=== PATIENT | female | born 1995 | race African-American/Black ===

== ENCOUNTER 2017-04-23 10:23 | Emergency (ER) | payer MEDICAID, OTHER ==
[2017-04-23] MEDS ORDERED: IBUPROFEN 800 MG TABLET PO ONE (10:58)
[2017-04-23] MEDS ORDERED: ONDANSETRON 4 MG TAB.RAPDIS PO ONE (10:59)
--- NOTE | 2017-04-23 11:17 | ER Document Report ---
ED Respiratory Problem - General Chief Complaint: Cold Symptoms Stated Complaint: NECK PAIN,HEADACHE Time Seen by Provider: 04/23/17 10:42 Mode of Arrival: Ambulatory Information source: Patient Notes: 22-year-old female presents to ED for cough cold congestion and headache for 3 or 4 days. She states her lungs hurt when she takes a deep breath. She also has a headache that she states will not go away. She has a history of spina bifida occulta, anxiety, depression, bipolar, psychotic disorder. TRAVEL OUTSIDE OF THE [place] IN LAST 30 DAYS: No - HPI Patient complains to provider of: Cough Onset: Other - 3-4 days Duration: Continuous Initiating Event: URI Quality of pain: Achy, Sharp Severity: Moderate Pain Level: 3 Chest pain/discomfort: Worse with deep breaths Cough: Nonproductive Sputum amount: None Associated symptoms: Congestion, Cough, Headache, PND, Sinus pain/pressure Similar symptoms previously: Yes Recently seen / treated by doctor: No Past Medical History - General Information source: Patient - Social History Smoking Status: Never Smoker Cigarette use (# per day): No Chew tobacco use (# tins/day): No Smoking Education Provided: No Frequency of alcohol use: None Drug Abuse: None Occupation: none Lives with: Alone - kids Family History: Arthritis, CAD, CVA, DM, Hyperlipidemia, Hypertension, Malignancy, Thyroid Disfunction Patient has suicidal ideation: No Patient has homicidal ideation: No - Past Medical History Cardiac Medical History: Reports: None Pulmonary Medical History: Reports: None EENT Medical History: Reports: None Neurological Medical History: Reports: None Endocrine Medical History: Reports: None Renal/ Medical History: Reports: None Malignancy Medical History: Reports: None GI Medical History: Reports: None Musculoskeltal Medical History: Reports None Psychiatric Medical History: Reports: Hx Anxiety, Hx Bipolar Disorder, Hx Depression, Other - She was told she had depression at a psychotic level Traumatic Medical History: Reports: None Infectious Medical History: Reports: None Surgical Hx: Negative Past Surgical History: Reports: None - Immunizations Immunizations up to date: Yes Review of Systems - Review of Systems Constitutional: No symptoms reported EENT: Nose discharge, Sinus pressure Cardiovascular: Chest pain - "lung pain" Respiratory: No symptoms reported Gastrointestinal: No symptoms reported Genitourinary: No symptoms reported Female Genitourinary: No symptoms reported Musculoskeletal: No symptoms reported Skin: No symptoms reported Hematologic/Lymphatic: No symptoms reported Neurological/Psychological: No symptoms reported -: Yes All other systems reviewed and negative Physical Exam - Vital signs Vitals: Temp Pulse Resp BP Pulse Ox 99.3 F 85 16 121/88 H 99 04/23/17 10:27 04/23/17 10:27 04/23/17 10:27 04/23/17 10:27 04/23/17 10:27 Interpretation: Normal - General General appearance: Appears well, Alert - HEENT Head: Normocephalic, Atraumatic Eyes: Normal Pupils: PERRL Ears: Normal External canal: Normal Tympanic membrane: Normal Sinus: Frontal, Mastoid, Maxillary, Tenderness. No: Redness, Swelling Nasal: Purulent discharge Mouth/Lips: Normal Mucous membranes: Normal Pharynx: Post nasal drainage - Respiratory Respiratory status: No respiratory distress Chest status: Nontender Breath sounds: Normal Chest palpation: Normal - Cardiovascular Rhythm: Regular Heart sounds: Normal auscultation Murmur: No - Abdominal Inspection: Normal Distension: No distension Bowel sounds: Normal Tenderness: Nontender Organomegaly: No organomegaly - Back Back: Normal, Nontender - Extremities General upper extremity: Normal inspection, Nontender, Normal color, Normal ROM , Normal temperature General lower extremity: Normal inspection, Nontender, Normal color, Normal ROM , Normal temperature, Normal weight bearing. No: Damaso's sign - Neurological Neuro grossly intact: Yes Cognition: Normal Orientation: AAOx4 Vero Coma Scale Eye Opening: Spontaneous [place] Coma Scale Verbal: Oriented Vero Coma Scale Motor: Obeys Commands Vero Coma Scale Total: 15 Speech: Normal Motor strength normal: LUE, RUE, LLE, RLE Sensory: Normal - Psychological Associated symptoms: Normal affect, Normal mood - Skin Skin Temperature: Warm Skin Moisture: Dry Skin Color: Normal Course - Re-evaluation Re-evalutation: 04/23/17 11:57 Discussed x-ray with patient will discharge patient home to follow-up with her primary doctor. Patient was treated with ibuprofen and Zofran for her headache and lung pain. - Vital Signs Vital signs: Temp Pulse Resp BP Pulse Ox 99.5 F 90 16 120/82 100 04/23/17 12:10 04/23/17 12:10 04/23/17 12:10 04/23/17 12:10 04/23/17 12:10 - Diagnostic Test Radiology reviewed: Image reviewed, Reports reviewed Discharge - Discharge Clinical Impression: URI (upper respiratory infection) Qualifiers: URI type: unspecified URI Qualified Code(s): J06.9 - Acute upper respiratory infection, unspecified Headache Qualifiers: Headache type: unspecified Headache chronicity pattern: unspecified pattern Intractability: not intractable Qualified Code(s): R51 - Headache Condition: Stable Disposition: HOME, SELF-CARE Additional Instructions: UPPER RESPIRATORY ILLNESS: You have a viral infection of the respiratory passages -- a "cold." This common infection causes nasal congestion, drainage, and often sore throat and cough. It is highly contagious. The disease usually lasts about 10 to 14 days. There is no "cure" for the viral infection -- it must run its course. If there is a complication, such as bacterial infection in the nose, sinuses, middle ear, or bronchial tubes, antibiotics may be required. The antibiotics won't affect the virus. Drink plenty of fluids. A humidifier may help. An expectorant medication or decongestant may make you more comfortable. Use acetaminophen or ibuprofen for fever or aches. See the doctor if fever persists over two days, if there is any significant worsening of your symptoms, or if you simply fail to improve as expected. HEADACHE: The physician does not feel that the headache you are experiencing has a serious underlying cause. Most headaches are due to emotional stress, with resultant muscle tension (tension headache). Occasionally, headaches are secondary to changes in the blood vessels of the scalp (vascular headache and migraine headache). Sometimes, a headache is the first symptom of another developing illness, such as a viral infection. You have no evidence of stroke, bleeding, meningitis, or other serious cause of your headache. The treatment of headaches varies with the severity and cause of the pain. Not all headaches need pain shots. In fact, there is evidence that using narcotics for headaches may make them worse in the long run. The physician will determine the therapy that's in your best interest. If you develop a fever, if the headache is different from any you've previously experienced, or if the headache progressively worsens, then call your physician at once or go to the emergency room. ANTINAUSEA MEDICATION: You have been given a medication to suppress nausea and vomiting. This type of medication can be given as a shot, pill, or suppository. It will usually last for many hours. Pills and shots usually last six to eight hours, suppositories last about 12 hours. For the typical illness, only one or two doses of the medication may be necessary. Mild lightheadedness may occur. This type of medicine can cause drowsiness. Do not drive or operate dangerous machinery while under its influence. Do not mix with alcohol. See your doctor at once if you have muscle spasms or tightness, or uncontrollable motions (particularly of the neck, mouth, or jaw). Persistent vomiting or severe lightheadedness should also be evaluated by the physician. FOLLOW-UP CARE: If you have been referred to a physician for follow-up care, call the physician s office for an appointment as you were instructed or within the next two days. If you experience worsening or a significant change in your symptoms, notify the physician immediately or return to the Emergency Department at any time for re-evaluation. Prescriptions: Benzonatate [Tessalon Perle 100 mg Capsule] 100 mg PO Q8HP PRN #14 cap PRN Reason:
--- NOTE | 2017-04-23 11:49 | RADIOLOGY REPORT (SQ) ---
EXAM DESCRIPTION: CHEST PA/LAT COMPLETED DATE/TIME: 04/23/2017 11:28 am REASON FOR STUDY: cough congestion lungs hurt COMPARISON: None. EXAM PARAMETERS: NUMBER OF VIEWS: two views TECHNIQUE: Digital Frontal and Lateral radiographic views of the chest acquired. RADIATION DOSE: NA LIMITATIONS: none FINDINGS: LUNGS AND PLEURA: No opacities, masses or pneumothorax. No pleural effusion. MEDIASTINUM AND HILAR STRUCTURES: No masses or contour abnormalities. HEART AND VASCULAR STRUCTURES: Heart normal size. No evidence for failure. BONES: No acute findings. HARDWARE: None in the chest. OTHER: No other significant finding. IMPRESSION: NO SIGNIFICANT RADIOGRAPHIC FINDING IN THE CHEST. TECHNICAL DOCUMENTATION: JOB ID: [id number] [employer]- All Rights Reserved
[2017-04-23 12:15] VITALS: BP 120/82
== END 2017-04-23 12:15 | disposition home or self-care (01) ==
LOC: ER 10:23
DX: J06.9 Acute upper respiratory infection, unspecified (principal); R51 Headache; M54.2 Cervicalgia; R09.81 Nasal congestion; R05 Cough
CPT/HCPCS: 99283; 71020; J3490; S0119

== ENCOUNTER → 2017-08-22 | Outpatient (CLI) | payer MEDICAID ==
--- NOTE | 2017-08-22 16:16 | RADIOLOGY REPORT (SQ) ---
EXAM DESCRIPTION: U/S [id number] TRNABD 1GES W/ODOP COMPLETED DATE/TIME: 08/22/2017 3:57 pm REASON FOR STUDY: Z34.81 ENCOUNTER FOR SUPRVSN OF NORMAL , FIRST TRIMESTER Z34.81 ENCOUNTE R FOR SUPRVSN OF NORMAL , FIRST TRIM COMPARISON: None. TECHNIQUE: Transabdominal static and realtime grayscale images acquired of the pelvis. Additional se lected spectral and color Doppler images recorded. All images stored on PACs. bHCG: Not available LIMITATIONS: None. FINDINGS: FETUS: Living intrauterine . EGA: 8 weeks 6 days KANDIS: 03/28/2018 FHR: 169 beats per minute. SUBCHORIONIC BLEED: No SIZE OF BLEED: Not applicable. UTERUS: No masses. No anomalies. CERVICAL LENGTH: 2.6 cm Closed. RIGHT ADNEXA: Normal ovary with normal vascular flow. No adnexal free fluid. No adnexal masses. LEFT ADNEXA: Hypoechoic area is identified measuring 2.2 x 2.8 x 2.1 cm in diameters most consistent with a corpus lutein cyst. No adnexal free fluid. FREE FLUID: None. OTHER: No other significant finding. IMPRESSION: LIVING INTRAUTERINE . EGA 8 weeks 6 days Trimester of : First - 0 to 13 weeks. TECHNICAL DOCUMENTATION: JOB ID: [id number] [employer]- All Rights Reserved
== END ==
LOC: RAD 14:46
PROVIDERS: ATTEND Nurse Practitioner Women's Health
DX: Z34.81 Encounter for supervision of other normal pregnancy, first trimester (principal)
CPT/HCPCS: 76801

== ENCOUNTER 2017-11-01 10:38 | Emergency (ER) | payer MEDICAID ==
[2017-11-01] MEDS ORDERED: ACETAMINOPHEN 325 MG TABLET PO ONE (11:59)
[2017-11-01] MEDS ORDERED: ONDANSETRON HCL INJ/PF 4 MG/2 ML SDV IV ONE (11:59)
--- NOTE | 2017-11-01 12:04 | ER Document Report ---
HPI - HPI Pain Level: 0 Notes: Patient is a 22-year-old female approximately 19 weeks who presents to the ED complaining of intermittent nausea/vomiting and loose stool 3 days as well as a headache. No light/noise sensitivity. Patient states that she has been taking Tylenol previously with minimal relief, but has not taken in the last couple days. Patient states that she only has nausea/vomiting when she tries to eat food or drink fluids. Patient states that she is still able to keep some food and fluids down without any difficulties. Patient states that she has 2 loose stools a day over the last couple days. Patient also describes occasional lower abdominal cramping that is considered mild. Patient states that she has been evaluated by her [employer] for the same cramping that she has had over the last month. Patient has not had any vaginal discharge, odor, or bleeding. Pt currently does not have any cramping or abd pain. Patient states that she has had numerous ultrasounds with the last one 6 days ago which were unremarkable for acute pathology. Patient does have a medical history of spina bifida so they are watching her very closely. Patient was referred to the ED for hydration per her [employer], health department. Patient states that she has otherwise been feeling well without any recent illness. Patient has not been taking any nausea medication for her symptoms. Denies any drug allergies. Denies any fever, head injury, neck pain, changes in vision/ speech/mentation/hearing, URI, sore throat, chest pain, palpitations, syncope, cough, shortness of breath, wheeze, dyspnea, urinary retention, dysuria, hematuria, loss of control of bowel or bladder, numbness/tingling, saddle anesthesia, muscle paralysis/weakness, or rash. - ROS Systems Reviewed and Negative: Yes All other systems reviewed and negative - DERM Skin Color: Normal, [place] Past Medical History - Social History Smoking Status: Never Smoker Chew tobacco use (# tins/day): No Frequency of alcohol use: None Drug Abuse: None Family History: Arthritis, CAD, CVA, DM, Hyperlipidemia, Hypertension, Malignancy, Thyroid Disfunction Patient has suicidal ideation: No Patient has homicidal ideation: No Renal/ Medical History: Denies: Hx Peritoneal Dialysis Psychiatric Medical History: Reports: Hx Anxiety, Hx Bipolar Disorder, Hx Depression - Immunizations Immunizations up to date: Yes Vertical Provider Document - CONSTITUTIONAL Agree With Documented VS: Yes Notes: PHYSICAL EXAMINATION: GENERAL: Well-appearing, well-nourished and in no acute distress. A&Ox4. Answers questions appropriately. Moves comfortably in no apparent distress. HEAD: Atraumatic, normocephalic. EYES: Pupils equal round and reactive to light, extraocular movements intact, sclera anicteric, conjunctiva are normal. No nystagmus. ENT: EAC clear b/l. TM's intact b/l without erythema, fluid, or perforation. Nares patent and without discharge. oropharynx clear without exudates. No tonsilar hypertrophy or erythema. Moist mucous membranes. No sinus tenderness. NECK: Normal range of motion, supple without lymphadenopathy. Non-tender. LUNGS: Breath sounds clear to auscultation bilaterally and equal. No wheezes rales or rhonchi. HEART: Regular rate and rhythm without murmurs, rubs, gallops. ABDOMEN: Soft, nontender, nondistended abdomen. No guarding, no rebound. No masses appreciated. Normal bowel sounds present. No CVA tenderness bilaterally. Musculoskeletal: FROM to passive/active. Strength 5+/5. Extremities: No cyanosis, clubbing, or edema b/l. Peripheral pulses 2+. Capillary refill less than 3 seconds. NEUROLOGICAL: MMSE intact. Cranial nerves grossly intact. Normal speech, normal gait. Normal sensory, motor exams PSYCH: Normal mood, normal affect. SKIN: Warm, Dry, normal turgor, no rashes or lesions noted. - INFECTION CONTROL TRAVEL OUTSIDE OF THE [place] IN LAST 30 DAYS: No - RESPIRATORY O2 Sat by Pulse Oximetry: 98 Course - Re-evaluation Re-evalutation: 11/01/17 13:44 Patient is an afebrile, well-hydrated, 22-year-old female who presents to the ED with a headache and nausea, since resolved. Vitals are stable. PE is otherwise unremarkable. See urinalysis results. I suspect that the patient was mildly dehydrated. Patient received Zofran as well as Tylenol and 2 L normal saline. Patient states that her symptoms are completely resolved and she is feeling much better. Patient is tolerating p.o. without any difficulties. Low suspicion/risk for acute appendicitis, bowel obstruction, acute cholecystitis, acute cholangitis, perforated diverticulitis, incarcerated hernia, pancreatitis, perforated ulcer, peritonitis, sepsis, pelvic inflammatory disease, ectopic , tubo-ovarian abscess, ovarian torsion, severe dehydration, /miscarriage, or other systemic emergent condition at this time. Patient is aware that her condition can change from initial presentation and she needs to monitor symptoms closely and seek medical attention if any acute changes. Conservative measures otherwise for symptoms. Recheck with your PCM/obgyn in 3-5 days. Return to the ED with any worsening/ concerning symptoms otherwise as reviewed in discharge. Patient is in agreement. - Vital Signs Vital signs: Temp Pulse Resp BP Pulse Ox 98.8 F 78 16 125/60 98 11/01/17 11:09 11/01/17 11:09 11/01/17 11:09 11/01/17 11:09 11/01/17 11:09 Discharge - Discharge Clinical Impression: Headache Qualifiers: Headache type: unspecified Headache chronicity pattern: acute headache Intractability: not intractable Qualified Code(s): R51 - Headache Nausea & vomiting Qualifiers: Vomiting type: unspecified Vomiting Intractability: non-intractable Qualified Code(s): R11.2 - Nausea with vomiting, unspecified Condition: Stable Disposition: HOME, SELF-CARE Instructions: Antinausea Medication ([facility]) Additional Instructions: Maintain adequate fluid and food intake [place] diet ([employer] Bananas, rice, apples, toast, etc Zofran as needed tylenol if needed Monitor for any worsening symptoms Make sure you are staying hydrated enough to urinate and have normal BM's Recheck with your PCM/OBGYN in 3-5 days Consider consult with Gastroenterology for ongoing/worsening symptoms Return to the ED with any worsening symptoms and/or development of fever, headache, chest pain, palpitations, syncope, shortness of breath, trouble breathing, abdominal pain, n/v/d, blood in stool/urine, weakness, or other worsening symptoms that are concerning to you. Prescriptions: Ondansetron [Zofran Odt 4 mg Tablet] 1 - 2 tab PO Q4H PRN #15 tab.rapdis PRN Reason: For Nausea/Vomiting Referrals: HEALTH DEPT,[facility] [NO LOCAL MD] - Follow up in 3-5 days
[2017-11-01] MEDS: NORMAL SALINE 1000 ML 1,000 ML IV PRN ×2 (12:26→13:17)
[2017-11-01 12:54] LABS: APPEARANCE,URINE CLOUDY; BILIRUBIN,URINE NEGATIVE (NEGATIVE); COLOR,URINE YELLOW; GLUCOSE, URINE NEGATIVE (NEGATIVE); KETONES,URINE NEGATIVE (NEGATIVE); LEUKOCYTE ESTERASE,URINE MODERATE (NEGATIVE); NITRITE,URINE NEGATIVE (NEGATIVE); PROTEIN,URINE NEGATIVE (NEGATIVE); URINE SPECIFIC GRAVITY 1.026; UROBILINOGEN,URINE NEGATIVE mg/dL (<2.0)
[2017-11-01 13:57] VITALS: BP 109/58
== END 2017-11-01 13:59 | disposition home or self-care (01) ==
LOC: ER 10:38
DX: O21.9 Vomiting of pregnancy, unspecified (principal); O26.899 Other specified pregnancy related conditions, unspecified trimester; R51 Headache; R19.4 Change in bowel habit; Q05.9 Spina bifida, unspecified; Z3A.00 Weeks of gestation of pregnancy not specified; O99.350 Diseases of the nervous system complicating pregnancy, unspecified trimester
CPT/HCPCS: 99284; 96374; 87086; 81001; J3490; J2405; J7030

== ENCOUNTER → 2017-11-28 | Outpatient (CLI) | payer MEDICAID ==
[2017-11-28 11:35] LABS: APPEARANCE,URINE SLIGHTLY-CLOUDY; BILIRUBIN,URINE NEGATIVE (NEGATIVE); COLOR,URINE YELLOW; GLUCOSE, URINE NEGATIVE (NEGATIVE); KETONES,URINE NEGATIVE (NEGATIVE); LEUKOCYTE ESTERASE,URINE TRACE (NEGATIVE); NITRITE,URINE NEGATIVE (NEGATIVE); PROTEIN,URINE NEGATIVE (NEGATIVE); UROBILINOGEN,URINE NEGATIVE mg/dL (<2.0)
[2017-11-28 11:48] LABS: URINE AMPHETAMINES SCREEN NEGATIVE; URINE BARBITURATES SCREEN NEGATIVE; URINE BENZODIAZEPINES SCREEN NEGATIVE; URINE COCAINE SCREEN NEGATIVE; URINE MARIJUANA (THC) SCREEN NEGATIVE; URINE METHADONE SCREEN NEGATIVE; URINE PHENCYCLIDINE SCREEN NEGATIVE
== END ==
LOC: LC 09:56
PROVIDERS: ATTEND Student in an Organized Health Care Education/Training Program
PROC: 4A1HXCZ Monitoring of Products of Conception, Cardiac Rate, External Approach (ICD-10-PCS; principal; 2017-11-28)
DX: O36.8120 Decreased fetal movements, second trimester, not applicable or unspecified (principal); Z3A.23 23 weeks gestation of pregnancy
CPT/HCPCS: 80307; 81001

== ENCOUNTER 2018-01-07 13:11 | Outpatient (CLI) | payer MEDICAID ==
[2018-01-07 14:22] LABS: APPEARANCE,URINE CLOUDY; BILIRUBIN,URINE NEGATIVE (NEGATIVE); COLOR,URINE YELLOW; GLUCOSE, URINE NEGATIVE (NEGATIVE); KETONES,URINE NEGATIVE (NEGATIVE); LEUKOCYTE ESTERASE,URINE NEGATIVE (NEGATIVE); NITRITE,URINE NEGATIVE (NEGATIVE); PROTEIN,URINE NEGATIVE (NEGATIVE); URINE SPECIFIC GRAVITY 1.018; UROBILINOGEN,URINE NEGATIVE mg/dL (<2.0)
== END 2018-01-07 14:42 | disposition home or self-care (01) ==
LOC: LC 13:11
PROVIDERS: ATTEND Obstetrics & Gynecology
PROC: 4A1HXCZ Monitoring of Products of Conception, Cardiac Rate, External Approach (ICD-10-PCS; principal; 2018-01-07)
DX: O36.8130 Decreased fetal movements, third trimester, not applicable or unspecified (principal); Z3A.28 28 weeks gestation of pregnancy
CPT/HCPCS: 81001

== ENCOUNTER 2018-02-20 15:52 | Outpatient (CLI) | payer MEDICAID ==
--- NOTE | 2018-02-20 16:11 | L&D Progress Notes ---
PROGRESS NOTES Datetime Report Generated by CPN: 02/20/2018 16:11 PROGRESS NOTE Impression Other: Decreased movement, abdominal trauma Plan: Discharge Comment: Presented to labor and delivery for recent abdominal trauma and decreased movement. Audible movements on NST. NST reassuring tracing. VAGINAL EXAM Contractions: deferred MEMBRANES Membranes: Intact FETUS A FHR - Baseline: 140 Monitoring: External US Variability: Moderate 6-25bpm Accelerations: 10X10 Decelerations: Variable FHR Comments: variable decelerations, overall reassuring fto this gesational age. : 28.5 SIGNATURE SIGNATURE: [id number] Signature: with User ID: [email or web address]
[2018-02-20 16:27] LABS: APPEARANCE,URINE SLIGHTLY-CLOUDY; BILIRUBIN,URINE NEGATIVE (NEGATIVE); COLOR,URINE AMBER; GLUCOSE, URINE NEGATIVE (NEGATIVE); KETONES,URINE NEGATIVE (NEGATIVE); LEUKOCYTE ESTERASE,URINE TRACE (NEGATIVE); NITRITE,URINE NEGATIVE (NEGATIVE); PROTEIN,URINE NEGATIVE (NEGATIVE); URINE SPECIFIC GRAVITY 1.024; UROBILINOGEN,URINE NEGATIVE mg/dL (<2.0)
[2018-02-20 16:45] LABS: URINE AMPHETAMINES SCREEN NEGATIVE; URINE BARBITURATES SCREEN NEGATIVE; URINE BENZODIAZEPINES SCREEN NEGATIVE; URINE COCAINE SCREEN NEGATIVE; URINE MARIJUANA (THC) SCREEN NEGATIVE; URINE METHADONE SCREEN NEGATIVE; URINE PHENCYCLIDINE SCREEN NEGATIVE
== END 2018-02-20 17:48 | disposition home or self-care (01) ==
LOC: LC 15:52
PROVIDERS: ATTEND Obstetrics & Gynecology
PROC: 4A1HXCZ Monitoring of Products of Conception, Cardiac Rate, External Approach (ICD-10-PCS; principal; 2018-02-20)
DX: O47.03 False labor before 37 completed weeks of gestation, third trimester (principal); Z3A.35 35 weeks gestation of pregnancy
CPT/HCPCS: 59025; 80307; 81001

== ENCOUNTER 2018-03-29 02:12 | Emergency (ER) | payer MEDICAID ==
[2018-03-29 02:20] VITALS: BP 127/91
== END 2018-03-29 03:55 | disposition left against medical advice (07) ==
LOC: ER 02:12
DX: Z53.21 Procedure and treatment not carried out due to patient leaving prior to being seen by health care provider (principal)

== ENCOUNTER 2020-01-11 13:12 | Emergency (ER) | payer MEDICAID ==
--- NOTE | 2020-01-11 13:44 | ER Document Report ---
ED Medical Screen (RME) - General Chief Complaint: Bloody Stools Stated Complaint: RECTAL BLEEDING Time Seen by Provider: 01/11/20 13:33 Primary Care Provider: MILES BARGER MD [Primary Care Provider] - Follow up as needed Mode of Arrival: Wheelchair Information source: Patient Notes: 25-year-old G6, P3 32 weeks presents to the emergency department with possible rectal bleeding. Patient reports that she was on the toilet yesterday and felt something in her rectal area . When she touched her rectum it was bleeding. When she stood up blood was on the floor. Patient reports when she woke up this morning, went to the bathroom she noted blood in the toilet. Patient reports she not have good feeling in that area due to history of spina bifida. She is not sure if the bleeding came from rectally or vaginally. She just assumed it was rectally because she wiped in the back. She reports her legs are numb. She reports she has no reflexes. She reports she has had her last 3 children at [facility]. She reports her neurologist advised her OB to take the baby at 36 weeks. The OB did not agree. Words were exchanged and patient was discharged from [facility]. 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 Patient denies abdominal pain. Reports she feels the baby moving. I have greeted and performed a rapid initial assessment of this patient. A comprehensive ED assessment and evaluation of the patient, analysis of test results and completion of the medical decision making process will be conducted by additional ED providers. TRAVEL OUTSIDE OF THE [place] IN LAST 30 DAYS: No - Related Data Allergies/Adverse Reactions: alcohol Adverse Reaction (Unknown, Verified 01/11/20 13:32) Past Medical History Renal/ Medical History: Denies: Hx Peritoneal Dialysis Psychiatric Medical History: Reports: Hx Anxiety, Hx Bipolar Disorder, Hx Depression - Immunizations Immunizations up to date: Yes Physical Exam - Vital signs Vitals: Temp Pulse Resp BP Pulse Ox 99.0 F 86 16 131/60 H 98 01/11/20 13:17 01/11/20 13:17 01/11/20 13:17 01/11/20 13:17 01/11/20 13:17 Course - Vital Signs Vital signs: Temp Pulse Resp BP Pulse Ox 99.0 F 86 16 131/60 H 98 01/11/20 13:40 01/11/20 13:17 01/11/20 13:17 01/11/20 13:17 01/11/20 13:17 Doctor's Discharge - Discharge Referrals: MILES BARGER MD [Primary Care Provider] - Follow up as needed
--- NOTE | 2020-01-11 15:31 | ER Document Report ---
ED General - General Chief Complaint: Rectal Bleeding Stated Complaint: RECTAL BLEEDING Time Seen by Provider: 01/11/20 13:33 Primary Care Provider: YANY BERNARD MD [ACTIVE STAFF] - Follow up as needed Mode of Arrival: Wheelchair Notes: Patient is a 25-year-old female who presents to the emergency department at 34 weeks gestation complaining of possible rectal bleeding. Patient reports she went to use the bathroom and noticed blood in the toilet. She has had a history of rectal bleeding in the past. She presents to the emergency department to make sure that it is not actually vaginal bleeding. She denies any abdominal pain or obvious leakage of fluids. She reports that she was seen at [facility] however she states that she was recently discharged from their practice after a disagreement between her and 1 of the providers. She states that she has now been referred to [facility] in [place]. She has not received a phone call from them to verify that they have received her file. TRAVEL OUTSIDE OF THE [place] IN LAST 30 DAYS: No - Related Data Allergies/Adverse Reactions: alcohol Adverse Reaction (Unknown, Verified 01/11/20 13:32) Home Medications: PNV, folic acid Past Medical History - General Information source: Patient - Social History Smoking Status: Never Smoker Chew tobacco use (# tins/day): No Frequency of alcohol use: None Drug Abuse: None Family History: Arthritis, CAD, CVA, DM, Hyperlipidemia, Hypertension, Malignancy, Thyroid Disfunction Patient has suicidal ideation: No Patient has homicidal ideation: No Renal/ Medical History: Denies: Hx Peritoneal Dialysis Psychiatric Medical History: Reports: Hx Anxiety, Hx Bipolar Disorder, Hx Depression - Immunizations Immunizations up to date: Yes Review of Systems - Review of Systems Gastrointestinal: Rectal bleeding -: Yes All other systems reviewed and negative Physical Exam - Vital signs Vitals: Temp Pulse Resp BP Pulse Ox 99.0 F 86 16 131/60 H 98 01/11/20 13:17 01/11/20 13:17 01/11/20 13:17 01/11/20 13:17 01/11/20 13:17 - Notes Notes: PHYSICAL EXAMINATION: GENERAL: Well-appearing, well-nourished and in no acute distress. HEAD: Atraumatic, normocephalic. EYES: Pupils equal round and reactive to light, extraocular movements intact, conjunctiva are normal. ENT: Nares patent, oropharynx clear without exudates. Moist mucous membranes. NECK: Normal range of motion, supple without lymphadenopathy LUNGS: Breath sounds clear to auscultation bilaterally and equal. No wheezes rales or rhonchi. HEART: Regular rate and rhythm without murmurs ABDOMEN: Soft, nontender, nondistended abdomen. No guarding, no rebound. No masses appreciated. Female : Normal external genitalia, speculum exam was performed, cervix closed, cervix not friable, no bleeding noted. Thin white discharge noted. Rectal: Rectal exam performed, no obvious bleeding noted, Hemoccult positive. Musculoskeletal: Normal range of motion, no pitting or edema. No cyanosis. NEUROLOGICAL: Cranial nerves grossly intact. Normal speech, normal gait. Normal sensory, motor exams PSYCH: Normal mood, normal affect. SKIN: Warm, Dry, normal turgor, no rashes or lesions noted. Course - Re-evaluation Re-evalutation: Vital signs within normal limits, patient is in no acute distress. Vaginal exam was performed, no vaginal bleeding noted, cervix closed. There was no obvious rectal bleeding either however I did perform a Hemoccult card and it was positive for blood. This is reassuring. She will be referred out to gastroenterology for the rectal bleeding. She will also see her BARBER STYLIST in [place]. I did call [facility] to verify that she is now their patient and they will be able to see her. They state they will call her within a day or 2 for an appointment. heart tones were obtained and were within normal limits. Patient does have a history of spina bifida, she states the evolving is causing her significant back pain. I did prescribe her with a short course of Percocet to aid with this. She will follow-up with specialty care as outlined above. - Vital Signs Vital signs: Temp Pulse Resp BP Pulse Ox 98.4 F 94 18 115/61 100 01/11/20 16:17 01/11/20 16:17 01/11/20 16:17 01/11/20 16:17 01/11/20 16:17 Discharge - Discharge Clinical Impression: Rectal bleeding Qualifiers: Weeks of gestation: 34 weeks Qualified Code(s): Z3A.34 - 34 weeks gestation of Condition: Stable Disposition: HOME, SELF-CARE Additional Instructions: Please follow-up with gastroenterology and your new BARBER STYLIST. Their phone number is [phone]. I called and spoke with them, they are supposed to be calling you in the next several days to schedule an appointment. If you experience an emergency in the meanwhile please return here to the emergency department. Call to set up an appointment with a pick pulling machine operator that I have listed below. Prescriptions: Oxycodone HCl/Acetaminophen [Percocet 5-325 mg Tablet] 1 tab PO Q6H PRN #15 tablet PRN Reason: Referrals: YANY BERNARD MD [ACTIVE STAFF] - Follow up as needed
[2020-01-11 16:19] VITALS: BP 115/61
== END 2020-01-11 16:19 | disposition home or self-care (01) ==
LOC: ER 13:12
DX: O26.93 Pregnancy related conditions, unspecified, third trimester (principal); K62.5 Hemorrhage of anus and rectum; Z3A.34 34 weeks gestation of pregnancy
CPT/HCPCS: 99283

== ENCOUNTER 2020-02-07 04:40 | Emergency (ER) | payer MEDICAID ==
--- NOTE | 2020-02-07 05:08 | ER Document Report ---
ED Medical Screen (RME) - General Chief Complaint: Urinary Problem Stated Complaint: UNABLE TO URINATE Time Seen by Provider: 02/07/20 04:59 Primary Care Provider: MILES BARGER MD [Primary Care Provider] - Follow up as needed Notes: 25-year-old female who is 5 days status post including a Apodaca catheter which was removed before she went home, she states that she started having some discomfort urinating during the day and for the past several hours she has had the urge to urinate but she has been unable to urinate. She states she is starting to get uncomfortable and slightly nauseated although she denies specific abdominal pain or flank pain. She denies fever or vomiting. She had this in [place]. TRAVEL OUTSIDE OF THE [place] IN LAST 30 DAYS: No - Related Data Allergies/Adverse Reactions: alcohol Adverse Reaction (Unknown, Verified 01/11/20 13:32) Past Medical History Renal/ Medical History: Denies: Hx Peritoneal Dialysis Psychiatric Medical History: Reports: Hx Anxiety, Hx Bipolar Disorder, Hx Depression - Immunizations Immunizations up to date: Yes Physical Exam - Vital signs Vitals: Temp Pulse Resp BP Pulse Ox 97.2 F 76 16 130/83 H 99 02/07/20 04:46 02/07/20 04:46 02/07/20 04:46 02/07/20 04:46 02/07/20 04:46 - General General appearance: Anxious - Patient appears mildly restless and minimally uncomfortable but no severe distress - Abdominal Tenderness: Nontender Course - Re-evaluation Re-evalutation: Patient with urinary retention status post Apodaca removal status post . Placing Apodaca for urinary retention, work-up pending. I have greeted and performed a rapid initial assessment of this patient. A comprehensive ED assessment and evaluation of the patient, analysis of test results and completion of the medical decision making process will be conducted by additional ED providers. - Vital Signs Vital signs: Temp Pulse Resp BP Pulse Ox 97.2 F 76 16 130/83 H 99 02/07/20 04:46 02/07/20 04:46 02/07/20 04:46 02/07/20 04:46 02/07/20 04:46 Doctor's Discharge - Discharge Referrals: MILES BARGER MD [Primary Care Provider] - Follow up as needed
[2020-02-07 05:55] LABS: ABSOLUTE EOSINOPHILS # (AUTO) 0.3 10^3/uL (0.0-0.6); ABSOLUTE LYMPHOCYTES (AUTO) 2.6 10^3/uL (0.5-4.7); ABSOLUTE MONOCYTES (AUTO) 0.6 10^3/uL (0.1-1.4); ABSOLUTE NEUT (AUTO) 4.1 10^3/uL (1.7-8.2); BASOPHILS % (AUTO) 0.6 % (0-2); EOSINOPHILS % (AUTO) 3.3 % (0-6); HEMATOCRIT 30.9 % (36.0-47.0); HEMOGLOBIN 10.3 g/dL (12.0-15.5); LYMPHOCYTES % (AUTO) 33.4 % (13-45); MEAN CORPUSCULAR HEMOGLOBIN 25.2 pg (27.0-33.4); MEAN CORPUSCULAR HGB CONC 33.2 g/dL (32.0-36.0); MEAN CORPUSCULAR VOLUME 76 fl (80-97); MONOCYTES % (AUTO) 8.4 % (3-13); PLATELET COUNT 403 10^3/uL (150-450); RED BLOOD COUNT 4.07 10^6/uL (3.72-5.28); RED CELL DISTRIBUTION WIDTH 14.8 % (11.5-14.0); SEGMENTED NEUTROPHILS % (AUTO) 54.3 % (42-78); TOTAL CELLS COUNTED % (AUTO) 100 %; WHITE BLOOD COUNT 7.6 10^3/uL (4.0-10.5)
[2020-02-07 05:56] LABS: APPEARANCE,URINE CLEAR; BILIRUBIN,URINE NEGATIVE (NEGATIVE); COLOR,URINE YELLOW; GLUCOSE, URINE NEGATIVE (NEGATIVE); KETONES,URINE NEGATIVE (NEGATIVE); LEUKOCYTE ESTERASE,URINE NEGATIVE (NEGATIVE); NITRITE,URINE NEGATIVE (NEGATIVE); PROTEIN,URINE NEGATIVE (NEGATIVE); URINE SPECIFIC GRAVITY 1.012
[2020-02-07 06:03] LABS: ALBUMIN 3.2 g/dL (3.5-5.0); ALKALINE PHOSPHATASE 232 U/L (38-126); ANION GAP 5 (5-19); ASPARTATE AMINO TRANSFERASE 291 U/L (14-36); BILIRUBIN,DIRECT 0.3 mg/dL (0.0-0.4); BILIRUBIN,TOTAL 0.7 mg/dL (0.2-1.3); BLOOD UREA NITROGEN 14 mg/dL (7-20); CALCIUM 8.9 mg/dL (8.4-10.2); CARBON DIOXIDE 26 mmol/L (22-30); CHLORIDE 108 mmol/L (98-107); GLUCOSE 96 mg/dL (75-110); POTASSIUM 3.9 mmol/L (3.6-5.0); TOTAL PROTEIN 6.2 g/dL (6.3-8.2)
--- NOTE | 2020-02-07 07:07 | ER Document Report ---
Entered by NIRANJAN BALL SCRIBE 02/07/20 0623 Acting as scribe for:TIEN POLANCO MD ED GI/ - General Chief Complaint: Urinary Retention Stated Complaint: UNABLE TO URINATE Time Seen by Provider: 02/07/20 04:59 Primary Care Provider: MILES BARGER MD [ACTIVE STAFF] - Follow up as needed Mode of Arrival: Ambulatory Information source: Patient Notes: This 25-year-old female patient is 5 days post . She reports during the night this morning she noticed she was unable to urinate. She only has some dribbling. She had become quite uncomfortable. She is taking oxycodone for pain as needed, and states that she has been having some trouble with constipation. Before I saw her this morning, lab work is been done and a Apodaca catheter been placed. There was 1100 mL's of urine drained and the patient reports she feels considerably better. TRAVEL OUTSIDE OF THE [place] IN LAST 30 DAYS: No - Related Data Allergies/Adverse Reactions: alcohol Adverse Reaction (Unknown, Verified 01/11/20 13:32) Past Medical History - General Information source: Patient, [facility] Records - Social History Smoking Status: Former Smoker - Smoked until this . Cigarette use (# per day): No Chew tobacco use (# tins/day): No Smoking Education Provided: No Frequency of alcohol use: None Drug Abuse: None Family History: Arthritis, CAD, CVA, DM, Hyperlipidemia, Hypertension, Malignancy, Thyroid Disfunction Patient has homicidal ideation: No Psychiatric Medical History: Reports: Hx Anxiety, Hx Bipolar Disorder, Hx Depression Past Surgical History: Reports: Hx Section, Hx Oral Surgery - widsom - Immunizations Immunizations up to date: Yes Review of Systems - Review of Systems Constitutional: No symptoms reported EENT: No symptoms reported Cardiovascular: No symptoms reported Respiratory: No symptoms reported Gastrointestinal: No symptoms reported Genitourinary: See HPI Female Genitourinary: See HPI Musculoskeletal: No symptoms reported Skin: No symptoms reported Hematologic/Lymphatic: No symptoms reported Neurological/Psychological: No symptoms reported Physical Exam - Vital signs Vitals: Temp Pulse Resp BP Pulse Ox 97.2 F 76 16 130/83 H 99 02/07/20 04:46 02/07/20 04:46 02/07/20 04:46 02/07/20 04:46 02/07/20 04:46 Interpretation: Normal - General General appearance: Appears well, Alert In distress: None - HEENT Head: Normocephalic, Atraumatic Eyes: Normal Pupils: PERRL - Respiratory Respiratory status: No respiratory distress Breath sounds: Normal - Cardiovascular Rhythm: Regular Heart sounds: Normal auscultation Murmur: No - Abdominal Inspection: Obese Bowel sounds: Normal Tenderness: Other - scar looks good. There is still some Steri-Strip type tape intact. There is no drainage or erythema. Abdomen is soft with good bowel sounds. - Back Back: Normal - Extremities General upper extremity: Normal inspection General lower extremity: Normal inspection - Neurological Neuro grossly intact: Yes - Psychological Associated symptoms: Normal affect, Normal mood - Skin Skin Temperature: Warm Skin Moisture: Dry Skin Color: Normal Course - Re-evaluation Re-evalutation: 02/07/20 06:26 The patient had received the Apodaca catheter prior to my coming into work this morning. 1,100 mL's of urine was drained and the patient felt much better. - Vital Signs Vital signs: Temp Pulse Resp BP Pulse Ox 98.5 F 57 L 16 112/72 99 02/07/20 07:57 02/07/20 07:57 02/07/20 07:57 02/07/20 07:57 02/07/20 07:57 - Laboratory Result Diagrams: 02/07/20 05:32 02/07/20 05:32 Laboratory results interpreted by me: 02/07/20 02/07/20 02/07/20 05:32 05:32 05:32 Hgb 10.3 L Hct 30.9 L MCV 76 L MCH 25.2 L RDW 14.8 H Chloride 108 H AST 291 H ALT 154 H Alkaline Phosphatase 232 H Total Protein 6.2 L Albumin 3.2 L Urine Blood LARGE H Urine Urobilinogen 2.0 H - Diagnostic Test Radiology reviewed: Image reviewed, Reports reviewed - KUB is unremarkable, shows paucity of intestinal gas, recently placed Apodaca catheter Discharge - Discharge Clinical Impression: Acute urinary retention Condition: Stable Disposition: HOME, SELF-CARE Additional Instructions: Urinary Retention Urinary retention is inability to empty the bladder. It can result from a urine infection, or from mechanical problems such as an enlarged prostate gland or swelling of the urethra. Drugs or alcohol can also lead to urine retention. The condition is usually treated by passage of a catheter. If the physician thinks the problem will continue, the catheter may be left in place for a few days. Sometimes drugs are used to stimulate the bladder if the physician feels that inadequate bladder contraction is the cause. If the condition leading to the retention is a chronic one, such as an enlarged prostate, you will be referred to a specialist for further care. Call the physician or return if you develop fever, flank or back pain, pain on urination, or recurrent difficulty passing the urine. Drink plenty of fluids. Take MiraLAX to keep your bowels moving. Call your PUBLIC SCHOOL TEACHER doctor today to schedule an appointment in the next few days. Leave the catheter in until you have had a chance to see your doctor and to be evaluated. RETURN TO THE EMERGENCY ROOM IF ANY NEW OR WORSENING SYMPTOMS. I personally performed the services described in the documentation, reviewed and edited the documentation which was dictated to the scribe in my presence, and it accurately records my words and actions.
--- NOTE | 2020-02-07 07:43 | RADIOLOGY REPORT (SQ) ---
EXAM DESCRIPTION: XR ABDOMEN 1 VIEW (KUB) COMPLETED DATE/TME: 02/07/2020 06:22 CLINICAL HISTORY: 25 years Female, Post urinary retention, constipation COMPARISON: None. NUMBER OF VIEWS/TECHNIQUE: 1 Limitation: Rotation. FINDINGS: Intestinal gas pattern is within normal limits. Paucity of bowel gas. No suspicious calcification. Grossly intact skeletal structures. Apodaca. Asymmetry of the bony pelvis probably due to rotation and/or chronic deformity. IMPRESSION: No acute findings.
[2020-02-07 07:58] VITALS: BP 112/72
== END 2020-02-07 09:29 | disposition home or self-care (01) ==
LOC: ER 04:40
DX: O90.89 Other complications of the puerperium, not elsewhere classified (principal); R33.9 Retention of urine, unspecified; Z98.890 Other specified postprocedural states; Z87.891 Personal history of nicotine dependence
CPT/HCPCS: 36415; 51702; 74018; 80053; 81001; 85025; 99283

== ENCOUNTER 2020-02-07 14:32 | Emergency (ER) | payer MEDICAID ==
[2020-02-07 14:58] VITALS: BP 127/72
--- NOTE | 2020-02-07 15:49 | ER Document Report ---
HPI - HPI Time Seen by Provider: 02/07/20 14:51 Pain Level: Denies Notes: 25-year-old female who is 5 days via presents back to the emergency room for complaints of a leaky Apodaca catheter that was placed this morning prior to leaving the emergency room for urinary retention. Patient has a 14 Dominican catheter that is draining clear yellow urine. Patient states that she has some leakage around the catheter that is run down her leg. Denies any f fran chills, nausea vomiting, diarrhea. Patient does have a leg bag which she says some is draining into the leg bag and some medicine. Denies any chest pain or shortness of breath. REVIEW OF SYSTEMS:reviewed vital signs by RN CONSTITUTIONAL : Denies fever, chills, or sweats. Denies recent illness. CARDIOVASCULAR: Denies chest pain. Denies palpitations or racing or irregular heart beat. Denies ankle edema. RESPIRATORY: Denies cough, cold, or chest congestion. Denies shortness of breath, difficulty breathing, or wheezing. GASTROINTESTINAL: Denies abdominal pain or distention. Denies nausea, vomiting, or diarrhea. Denies blood in vomitus, stools, or per rectum. Denies black, tarry stools. Denies constipation. GENITOURINARY: Reports urinary retention prior to Apodaca catheter. reports difficulty urinating. denies painful urination, burning, frequency, blood in urine, or discharge. FEMALE GENITOURINARY: denies vaginal bleeding, heavy or abnormal periods, irregular periods. Denies vaginal discharge or odor. MUSCULOSKELETAL: Denies back or neck pain or stiffness. Denies joint pain or swelling. SKIN: Denies rash, lesions or sores. HEMATOLOGIC : Denies easy bruising or bleeding. LYMPHATIC: Denies swollen, enlarged glands. ALL OTHER SYSTEMS REVIEWED AND NEGATIVE. PHYSICAL EXAMINATION: GENERAL: Well-appearing, well-nourished and in no acute distress. NECK: Normal range of motion, supple without lymphadenopathy LUNGS: Breath sounds clear to auscultation bilaterally and equal. No wheezes rales or rhonchi. HEART: Regular rate and rhythm without murmurs ABDOMEN: Soft, nontender, nondistended abdomen. No guarding, no rebound. No masses appreciated. Female : 14 Dominican Apodaca catheter in urethra Musculoskeletal: Normal range of motion, no pitting or edema. No cyanosis. NEUROLOGICAL: Cranial nerves grossly intact. Normal speech, normal gait. Normal sensory, motor exams SKIN: Warm, Dry, normal turgor, no rashes or lesions noted. Dictation was performed using Ntractive voice recognition software - CONSTITUTIONAL Constitutional: DENIES: Fever, Chills - REPRODUCTIVE Reproductive: REPORTS: : Past Medical History - Social History Smoking Status: Unknown if Ever Smoked Family History: Arthritis, CAD, CVA, DM, Hyperlipidemia, Hypertension, Malignancy, Thyroid Disfunction Patient has homicidal ideation: No Renal/ Medical History: Denies: Hx Peritoneal Dialysis Psychiatric Medical History: Reports: Hx Anxiety, Hx Bipolar Disorder, Hx Depression Past Surgical History: Reports: Hx Section, Hx Oral Surgery - w[facility]om - Immunizations Immunizations up to date: Yes Vertical Provider Document - INFECTION CONTROL TRAVEL OUTSIDE OF THE [place] IN LAST 30 DAYS: No Course - Re-evaluation Re-evalutation: 02/07/20 17:37 Afebrile vital stable no distress. Nurses trouble shot catheter, was patent and draining clear urine. Likely this was a positional issue which caused some urine to leak from urinary catheter. After treatment troubleshooting catheter, patient waited for about 30 minutes to see if there was any leaking in a seated position and standing position, no urinary leakage was noted from Apodaca catheter. Patient denied any pain, no hematuria. Patient felt comfortable leaving with catheter in place under previous providers instructions. Advised to follow-up with BUSINESS PROPOSAL REP and primary care provider as directed. After performing a Medical Screening Examination, I estimate there is LOW risk for ACUTE APPENDICITIS, BOWEL OBSTRUCTION, ACUTE CHOLECYSTITIS, PERFORATED DIVERTICULITIS, INCARCERATED HERNIA, PANCREATITIS, PELVIC INFLAMMATORY DISEASE, PERFORATED ULCER, ECTOPIC , or TUBO-OVARIAN ABSCESS, thus I consider the discharge disposition reasonable. Also, there is no evidence or peritonitis, sepsis, or toxicity. I have reevaluated this patient multiple times and no significant life threatening changes are noted. The patient and I have discussed the diagnosis and risks, and we agree with discharging home with close follow-up with the understanding that symptoms and presentations can change. We also discussed returning to the Emergency Department immediately if new or worsening symptoms occur. We have discussed the symptoms which are most concerning (e.g., bloody stool, fever, changing or worsening pain, vomiting) that necessitate immediate return. - Vital Signs Vital signs: Temp Pulse Resp BP Pulse Ox 98.9 F 58 L 20 127/72 H 98 02/07/20 14:52 02/07/20 14:37 02/07/20 14:37 02/07/20 14:37 02/07/20 14:37 Discharge - Discharge Clinical Impression: Leakage from urinary catheter Qualifiers: Encounter type: initial encounter Qualified Code(s): T83.038A - Leakage of other urinary catheter, initial encounter Condition: Stable Disposition: HOME, SELF-CARE Additional Instructions: Return immediately for any new or worsening symptoms. Follow up with primary care provider, call tomorrow to make followup appointment. Referrals: DERREK SMITH MD [Primary Care Provider] - Follow up as needed ANATOLIY CHAVEZ MD [ACTIVE STAFF] - Follow up as needed
== END 2020-02-07 15:50 | disposition home or self-care (01) ==
LOC: ER 14:32
DX: O9A.23 Injury, poisoning and certain other consequences of external causes complicating the puerperium (principal); T83.031A Leakage of indwelling urethral catheter, initial encounter; Y84.6 Urinary catheterization as the cause of abnormal reaction of the patient, or of later complication, without mention of misadventure at the time of the procedure; Z98.890 Other specified postprocedural states
CPT/HCPCS: 99283

== ENCOUNTER 2020-02-08 22:17 | Emergency (ER) | payer MEDICAID ==
--- NOTE | 2020-02-08 23:09 | ER Document Report ---
ED Medical Screen (RME) - General Chief Complaint: Problem with Urinary Catheter Stated Complaint: URINARY PROBLEM Time Seen by Provider: 02/08/20 23:04 Primary Care Provider: DERREK SMITH MD [Primary Care Provider] - Follow up as needed Notes: HPI: 25-year-old female 6 days presenting with continued discomfort with a Apodaca catheter that was left in because she had urinary retention. Patient was seen yesterday for same complaint and they did check the catheter and it was draining appropriately. She states when she lays back or sits down it is uncomfortable and she cannot pee through it and it does not drain. She is requesting to have the catheter out and see if she can urinate and if not she states they may put it back in. PHYSICAL EXAMINATION: Patient does not appear to be in acute distress. Exam was limited in triage. No discomfort over the lower abdomen on palpation. I have greeted and performed a rapid initial assessment of this patient. A comprehensive ED assessment and evaluation of the patient, analysis of test results and completion of medical decision making process will be conducted by an additional ED providers. TRAVEL OUTSIDE OF THE [place] IN LAST 30 DAYS: No - Related Data Allergies/Adverse Reactions: alcohol Adverse Reaction (Unknown, Verified 01/11/20 13:32) Home Medications: oxycodone, vitamins, ibuprofen Past Medical History Renal/ Medical History: Denies: Hx Peritoneal Dialysis Psychiatric Medical History: Reports: Hx Anxiety, Hx Bipolar Disorder, Hx Depression Past Surgical History: Reports: Hx Section, Hx Oral Surgery - widsom - Immunizations Immunizations up to date: Yes Physical Exam - Vital signs Vitals: Temp Pulse Resp BP Pulse Ox 98.9 F 64 14 135/85 H 99 02/08/20 22:26 02/08/20 22:26 02/08/20 22:26 02/08/20 22:26 02/08/20 22:26 Course - Vital Signs Vital signs: Temp Pulse Resp BP Pulse Ox 98.9 F 64 14 135/85 H 99 02/08/20 22:58 02/08/20 22:26 02/08/20 22:26 02/08/20 22:26 02/08/20 22:26 Doctor's Discharge - Discharge Referrals: DERREK SMITH MD [Primary Care Provider] - Follow up as needed
--- NOTE | 2020-02-09 00:40 | ER Document Report ---
HPI - HPI Time Seen by Provider: 02/08/20 23:04 Pain Level: 2 Notes: 25-year-old female presenting to the emergency department with chief complaint of request to have Apodaca removed. She was seen in this emergency department on 02/07/2020 for acute urinary retention. At that time she was 5 days post section. She reports that they insert a Apodaca here in the emergency department and got a large amount of urine out. She states that they discharged her home with a Apodaca catheter with plans to follow-up with her CUSTOMER SERVICE ASSOCIATE. She reports she came here yesterday because the catheter was leaking. She reports today it is leaking again and also causing her some discomfort. Patient does report that the urine is darker than usual. She is requesting that it be r emoved and if she is able to urinate she be discharged home without it. She denies ever having any history of having acute urinary retention. She denies any other symptoms to include fever, urinary frequency or dysuria. - REPRODUCTIVE LMP: 7 days post- Reproductive: DENIES: : Past Medical History - General Information source: Patient - Social History Smoking Status: Former Smoker Frequency of alcohol use: None Drug Abuse: None Family History: Arthritis, CAD, CVA, DM, Hyperlipidemia, Hypertension, Malignancy, Thyroid Disfunction Patient has homicidal ideation: No - Medical History Medical History: Other - Spina bifida Renal/ Medical History: Denies: Hx Peritoneal Dialysis Psychiatric Medical History: Reports: Hx Anxiety, Hx Bipolar Disorder, Hx Depression Past Surgical History: Reports: Hx Section, Hx Oral Surgery - widsom - Immunizations Immunizations up to date: Yes Vertical Provider Document - CONSTITUTIONAL Notes: PHYSICAL EXAMINATION: GENERAL: Well-appearing, well-nourished and in no acute distress. HEAD: Atraumatic, normocephalic. EYES: Pupils equal round and reactive to light, extraocular movements intact, conjunctiva are normal. ENT: Nares patent, oropharynx clear without exudates. Moist mucous membranes. NECK: Normal range of motion, supple without lymphadenopathy LUNGS: Breath sounds clear to auscultation bilaterally and equal. No wheezes rales or rhonchi. HEART: Regular rate and rhythm without murmurs ABDOMEN: Soft, nontender, nondistended abdomen. No guarding, no rebound. No masses appreciated. Female : deferred Musculoskeletal: Normal range of motion, no pitting or edema. No cyanosis. NEUROLOGICAL: Cranial nerves grossly intact. Normal speech, normal gait. Normal sensory, motor exams PSYCH: Normal mood, normal affect. SKIN: Warm, Dry, normal turgor, no rashes or lesions noted. - INFECTION CONTROL TRAVEL OUTSIDE OF THE [place] IN LAST 30 DAYS: No Course - Re-evaluation Re-evalutation: 02/09/20 00:42 Patient had Apodaca catheter inserted 2 days ago for acute urinary retention, she was status post section. She is requesting to have the Apodaca catheter removed. She would like to try to urinate on her own. She is agreeable to have a Apodaca reinserted if necessary. She states that the Apodaca catheter is leaking at this time. She reports that is also causing her discomfort. She denies any other symptoms. Will have nursing staff remove Apodaca, will allow patient to have oral intake to hopefully get a urine sample. Upon review of patient's most recent visit, she did have elevated LFTs. She reports that she was diagnosed with gallstones during her . She is having some pain to the right upper quadrant that is worse with eating. Will send patient for ultrasound. Ultrasound showed a hepatic lesion, radiologist recommended CT for further evaluation. Patient agreeable to this. Abdomen Ultrasound 02/09/20 01:08 IMPRESSION: 1. 4 x 2.1 x 3.7 cm right hepatic lesion without significant Doppler demonstrate vascularity. Differential etiologies include neoplasm. 2. Mild right hydronephrosis pattern. 3. Cholelithiasis. Recommendation: Multiphase contrast CT of the abdomen and pelvis including liver protocol. Abdomen/Pelvis CT 02/09/20 04:15 IMPRESSION: 1. Findings most worrisome for acute bilateral pyelonephritis, please correlate with urinalysis. 2. Cholelithiasis. 3. Indeterminate 3.4 cm right hepatic lesion in the inferior right hepatic lobe corresponding to the abnormality on ultrasound. This does not have typical features for hemangioma and is still indeterminate at this time. Would recommend nonemergent follow-up liver protocol MRI with and without contrast when feasible. No acute findings today found on abdomen ultrasound or abdomen pelvis CT. We did discuss the results of the abdomen pelvis CT to include the hepatic lesion and that she needs to have this followed up with possibly an MRI. Patient verbalizes understanding. - Vital Signs Vital signs: Temp Pulse Resp BP Pulse Ox 98.9 F 64 14 135/85 H 99 02/08/20 22:58 02/08/20 22:26 02/08/20 22:26 02/08/20 22:26 02/08/20 22:26 - Laboratory Result Diagrams: 02/09/20 01:22 02/09/20 01:22 Discharge - Discharge Clinical Impression: Encounter for Apodaca catheter removal, Elevated liver enzymes, Hepatic lesion Condition: Stable Disposition: HOME, SELF-CARE Additional Instructions: I have given you a copy of the CAT scan and the ultrasound. As discussed there is a small lesion on your liver, it is unsure what the cause of this is. The radiologist is now recommending an MRI to fully evaluate this. This would need to be done on an outpatient basis. The CAT scan shows that it is possible you have a kidney infection also known as pyelonephritis. We have given you a dose of antibiotics to treat this however I am also running a urine culture as I am not convinced you have pyelonephritis. When the culture returns in 2 to 3 days someone will call you if there is any abnormality. If there is an abnormality they will call in an antibiotic for you. In the meanwhile please return to the emergency department if you develop acute urinary retention again. Referrals: DERREK SMITH MD [Primary Care Provider] - Follow up as needed
[2020-02-09 01:10] LABS: APPEARANCE,URINE SLIGHTLY-CLOUDY; BILIRUBIN,URINE NEGATIVE (NEGATIVE); COLOR,URINE YELLOW; GLUCOSE, URINE NEGATIVE (NEGATIVE); KETONES,URINE NEGATIVE (NEGATIVE); LEUKOCYTE ESTERASE,URINE MODERATE (NEGATIVE); NITRITE,URINE NEGATIVE (NEGATIVE); PROTEIN,URINE 30 mg/dL (NEGATIVE); UROBILINOGEN,URINE NEGATIVE mg/dL (<2.0)
[2020-02-09 01:46] LABS: ABSOLUTE EOSINOPHILS # (AUTO) 0.2 10^3/uL (0.0-0.6); ABSOLUTE LYMPHOCYTES (AUTO) 2.4 10^3/uL (0.5-4.7); ABSOLUTE MONOCYTES (AUTO) 0.7 10^3/uL (0.1-1.4); ABSOLUTE NEUT (AUTO) 5.3 10^3/uL (1.7-8.2); BASOPHILS % (AUTO) 0.4 % (0-2); EOSINOPHILS % (AUTO) 2.7 % (0-6); HEMATOCRIT 33.6 % (36.0-47.0); HEMOGLOBIN 11.1 g/dL (12.0-15.5); LYMPHOCYTES % (AUTO) 27.9 % (13-45); MEAN CORPUSCULAR HGB CONC 33.1 g/dL (32.0-36.0); MEAN CORPUSCULAR VOLUME 76 fl (80-97); MONOCYTES % (AUTO) 8.4 % (3-13); PLATELET COUNT 433 10^3/uL (150-450); RED BLOOD COUNT 4.44 10^6/uL (3.72-5.28); RED CELL DISTRIBUTION WIDTH 14.9 % (11.5-14.0); SEGMENTED NEUTROPHILS % (AUTO) 60.6 % (42-78); TOTAL CELLS COUNTED % (AUTO) 100 %; WHITE BLOOD COUNT 8.8 10^3/uL (4.0-10.5)
[2020-02-09 01:49] LABS: ALBUMIN 3.1 g/dL (3.5-5.0); ALKALINE PHOSPHATASE 288 U/L (38-126); ANION GAP 5 (5-19); ASPARTATE AMINO TRANSFERASE 233 U/L (14-36); BILIRUBIN,TOTAL 0.3 mg/dL (0.2-1.3); BLOOD UREA NITROGEN 12 mg/dL (7-20); CALCIUM 8.7 mg/dL (8.4-10.2); CARBON DIOXIDE 27 mmol/L (22-30); CHLORIDE 108 mmol/L (98-107); GLUCOSE 94 mg/dL (75-110); TOTAL PROTEIN 6.1 g/dL (6.3-8.2)
--- NOTE | 2020-02-09 03:42 | RADIOLOGY REPORT (SQ) ---
EXAM DESCRIPTION: US ABDOMEN LIMITED COMPLETED DATE/TME: 02/09/2020 01:08 CLINICAL HISTORY: 25 years Female, RUQ pain, recently elevated liver enzymes Comparison: None. LIMITATIONS: None. FINDINGS: 4 x 2.1 x 3.7 cm right hepatic lesion without significant Doppler demonstrate vascularity. 11 cm right kidney pelvicalyceal dilation measuring 1.5 cm prevoid and 0.7 cm post void. Comparative view of the left kidney shows no left-sided hydronephrosis. Cholelithiasis, negative sonographic Richardson's test, a 0.2-cm diameter common bile duct, no intrahepatic ductal dilation, hepatopetal patent flow of the portal vein, pancreas, visualized vasculature/abdominal aorta, and no significant ascites appear otherwise unremarkable. IMPRESSION: 1. 4 x 2.1 x 3.7 cm right hepatic lesion without significant Doppler demonstrate vascularity. Differential etiologies include neoplasm. 2. Mild right hydronephrosis pattern. 3. Cholelithiasis. Recommendation: Multiphase contrast CT of the abdomen and pelvis including liver protocol.
--- NOTE | 2020-02-09 05:39 | RADIOLOGY REPORT (SQ) ---
CT abdomen and pelvis with contrast on 02/09/2020 at 4:45 AM CLINICAL INDICATION: Evaluate hepatic lesion, follow-up abnormal ultrasound, seven days TECHNIQUE: Multiple axial images are obtained throughout the abdomen and pelvis following the administration of IV contrast, 100 mL of Omnipaque 350contrast was administered intravenously without complication. This exam was performed according to our departmental dose-optimization program, which includes automated exposure control, adjustment of the mA and/or kV according to patient size and/or use of iterative reconstruction technique. Total DLP is 1610.92 mGy*cm. COMPARISON: Ultrasound from 02/09/2020 FINDINGS: Abdomen: The lung bases are clear. Gallstones are noted in the gallbladder. There is a vague low-density area in the inferior right hepatic lobe on axial images 32 through 36 of series 3 that likely corresponds to the abnormality on ultrasound. This measures approximately 3.4 x 1.9 cm. This does not have typical appearance of hemangioma. On the delayed imaging this is homogeneous with adjacent liver. Would recommend nonemergent follow-up liver protocol MRI with contrast to better evaluate. There are subtle striated nephrograms in bilateral kidneys most consistent with acute bilateral pyelonephritis, please correlate with urinalysis. Solid abdominal organs are otherwise unremarkable. There is no abdominal adenopathy. There is no free fluid or free air within the abdomen. The abdominal portion of the GI tract is unremarkable. Pelvis: An enlarged uterus is noted consistent with the patient's history. Very small amount of free fluid in the pelvis is noted. Large spina bifida defect is noted in the lower lumbar spine and sacrum. There is chronic bony protuberance along the left posterior iliac bone seen well on axial image 56 of series 3. Pelvic portion of the GI tract including the appendix is unremarkable. There is no pelvic adenopathy. No acute bony abnormality is noted. IMPRESSION: 1. Findings most worrisome for acute bilateral pyelonephritis, please correlate with urinalysis. 2. Cholelithiasis. 3. Indeterminate 3.4 cm right hepatic lesion in the inferior right hepatic lobe corresponding to the abnormality on ultrasound. This does not have typical features for hemangioma and is still indeterminate at this time. Would recommend nonemergent follow-up liver protocol MRI with and without contrast when feasible.
[2020-02-09] MEDS ORDERED: LIDOCAINE 1% INJ-PF (10 MG/ML) 30 ML SDV IM ONE (05:51)
[2020-02-09] MEDS ORDERED: CEFTRIAXONE INJ 1000 MG VIAL IM ONE (05:51)
[2020-02-09 06:50] VITALS: BP 134/76
== END 2020-02-09 06:50 | disposition home or self-care (01) ==
LOC: ER 22:17
DX: T83.9XXA Unspecified complication of genitourinary prosthetic device, implant and graft, initial encounter (principal); R74.8 Abnormal levels of other serum enzymes; K76.9 Liver disease, unspecified; Z87.891 Personal history of nicotine dependence
CPT/HCPCS: 99284; 96372; 36415; 87086; 83690; 85025; 80053; 81001; 76705; 74177; J3490; J0696

== ENCOUNTER 2020-02-13 00:31 | Inpatient (IN) | payer MEDICAID ==
[2020-02-13] MEDS ORDERED: ONDANSETRON 4 MG TAB.RAPDIS PO ONE (01:26)
[2020-02-13 02:00] LABS: ABSOLUTE EOSINOPHILS # (AUTO) 0.2 10^3/uL (0.0-0.6); ABSOLUTE LYMPHOCYTES (AUTO) 2.4 10^3/uL (0.5-4.7); ABSOLUTE MONOCYTES (AUTO) 0.8 10^3/uL (0.1-1.4); ABSOLUTE NEUT (AUTO) 5.6 10^3/uL (1.7-8.2); BASOPHILS % (AUTO) 0.4 % (0-2); EOSINOPHILS % (AUTO) 2.7 % (0-6); HEMATOCRIT 37.5 % (36.0-47.0); HEMOGLOBIN 12.5 g/dL (12.0-15.5); LYMPHOCYTES % (AUTO) 26.7 % (13-45); MEAN CORPUSCULAR HEMOGLOBIN 24.9 pg (27.0-33.4); MEAN CORPUSCULAR HGB CONC 33.2 g/dL (32.0-36.0); MEAN CORPUSCULAR VOLUME 75 fl (80-97); MONOCYTES % (AUTO) 8.9 % (3-13); PLATELET COUNT 463 10^3/uL (150-450); RED BLOOD COUNT 5.01 10^6/uL (3.72-5.28); RED CELL DISTRIBUTION WIDTH 14.5 % (11.5-14.0); SEGMENTED NEUTROPHILS % (AUTO) 61.3 % (42-78); TOTAL CELLS COUNTED % (AUTO) 100 %; WHITE BLOOD COUNT 9.1 10^3/uL (4.0-10.5)
[2020-02-13 02:15] LABS: ALBUMIN 3.8 g/dL (3.5-5.0); ALKALINE PHOSPHATASE 385 U/L (38-126); ANION GAP 10 (5-19); ASPARTATE AMINO TRANSFERASE 529 U/L (14-36); BILIRUBIN,DIRECT 0.6 mg/dL (0.0-0.4); BILIRUBIN,TOTAL 1.1 mg/dL (0.2-1.3); BLOOD UREA NITROGEN 13 mg/dL (7-20); CALCIUM 9.6 mg/dL (8.4-10.2); CARBON DIOXIDE 23 mmol/L (22-30); CHLORIDE 107 mmol/L (98-107); GLUCOSE 104 mg/dL (75-110); POTASSIUM 4.2 mmol/L (3.6-5.0)
[2020-02-13 02:33] LABS: APPEARANCE,URINE SLIGHTLY-CLOUDY; BILIRUBIN,URINE NEGATIVE (NEGATIVE); COLOR,URINE YELLOW; GLUCOSE, URINE NEGATIVE (NEGATIVE); KETONES,URINE NEGATIVE (NEGATIVE); LEUKOCYTE ESTERASE,URINE NEGATIVE (NEGATIVE); NITRITE,URINE NEGATIVE (NEGATIVE); PROTEIN,URINE NEGATIVE (NEGATIVE); URINE SPECIFIC GRAVITY 1.016
[2020-02-13] MEDS ORDERED: HYDROMORPHONE HCL INJ/PF 2 MG/ML AMPULE IV ONE ×3 (03:52→11:15)
--- NOTE | 2020-02-13 03:53 | ER Document Report ---
ED General - General Mode of Arrival: Ambulatory Information source: Patient TRAVEL OUTSIDE OF THE [place] IN LAST 30 DAYS: No - HPI Onset: Other - over the last several days Onset/Duration: Gradual Quality of pain: Burning, Sharp Severity: Severe Pain Level: 5 Associated symptoms: Nausea, Vomiting, Other - decreased PO intake Exacerbated by: Food Relieved by: Denies Similar symptoms previously: Yes - over the last few weeks Recently seen / treated by doctor: Yes - patient was in the ER for similar pain on 02/09/20 <UNRULY OLIVERA - Last Filed: 02/13/20 05:53> <MARIZA DO - Last Filed: 02/13/20 10:57> - General Chief Complaint: Abdominal Pain Stated Complaint: ABDOMINAL PAIN Time Seen by Provider: 02/13/20 03:52 Primary Care Provider: DERREK SMITH MD [Primary Care Provider] - Follow up as needed - HPI Notes: 25 year old female with a history of a recent C section earlier in the month who was diagnosed with a UTI on 02/09/20 (she had a CT abd/pel then as well as an Ultrasound which showed gallstones and possibly pyelonephritis then) here in the ER for worsening upper abdominal pain which radiates to her back. The patient says she has nausea and vomiting with the abdominal pain. The patient denies fevers, chills, sweats. Eating makes the pain worse. The patient denies alcohol use. (UNRULY OLIVERA) - Related Data Allergies/Adverse Reactions: alcohol Adverse Reaction (Unknown, Verified 02/13/20 01:23) Past Medical History - General Information source: Patient - Social History Smoking Status: Former Smoker Frequency of alcohol use: None Drug Abuse: None Family History: Arthritis, CAD, CVA, DM, Hyperlipidemia, Hypertension, Malignancy, Thyroid Disfunction Patient has homicidal ideation: No Renal/ Medical History: Denies: Hx Peritoneal Dialysis Psychiatric Medical History: Reports: Hx Anxiety, Hx Bipolar Disorder, Hx Depression Past Surgical History: Reports: Hx Section, Hx Oral Surgery - widsom - Immunizations Immunizations up to date: Yes <UNRULY OLIVERA - Last Filed: 02/13/20 05:53> Review of Systems - Review of Systems Constitutional: No symptoms reported EENT: No symptoms reported Cardiovascular: No symptoms reported Respiratory: No symptoms reported Gastrointestinal: Abdominal pain, Nausea, Vomiting Genitourinary: No symptoms reported Female Genitourinary: No symptoms reported Musculoskeletal: No symptoms reported Skin: No symptoms reported Hematologic/Lymphatic: No symptoms reported Neurological/Psychological: No symptoms reported -: Yes All other systems reviewed and negative <UNRULY OLIVERA - Last Filed: 02/13/20 05:53> Physical Exam <UNRULY OLIVERA - Last Filed: 02/13/20 05:53> - Vital signs Vitals: Temp Pulse Resp BP Pulse Ox 98.3 F 87 20 135/77 H 99 02/13/20 00:46 02/13/20 00:46 02/13/20 00:46 02/13/20 00:46 02/13/20 00:46 - Notes Notes: GENERAL: Well-appearing, well-nourished and in no acute distress. HEAD: Atraumatic, normocephalic. EYES: Pupils equal round and reactive to light, extraocular movements intact, sclera anicteric, conjunctiva are normal. ENT: External ears normal, nares patent, oropharynx clear without exudates. Moist mucous membranes. NECK: Normal range of motion, supple without lymphadenopathy or JVD. LUNGS: Breath sounds clear to auscultation bilaterally and equal. No wheezes rales or rhonchi. HEART: Regular rate and rhythm without murmurs, rubs or gallops. ABDOMEN: Soft, severe tenderness in epigastric area. No RUQ tenderness. Normoactive bowel sounds. No guarding, no rebound. No masses appreciated. BACK: no flank tenderness EXTREMITIES: Normal range of motion, no pitting or edema. No clubbing or cyanosis. NEUROLOGICAL: Cranial nerves II through XII grossly intact. Normal speech, n ormal gait. PSYCH: Normal mood, normal affect. SKIN: Warm, Dry, normal turgor, no rashes or lesions noted. (UNRULY OLIVERA) Course - Laboratory Result Diagrams: 02/13/20 01:46 02/13/20 01:46 <UNRULY OLIVERA - Last Filed: 02/13/20 05:53> - Laboratory Result Diagrams: 02/13/20 01:46 02/13/20 01:46 - Diagnostic Test Radiology reviewed: Image reviewed, Reports reviewed <MARIZA DO - Last Filed: 02/13/20 10:57> - Re-evaluation Re-evalutation: 02/13/20 04:48 The patient's Lipase is in the 73067w today when it was 83 on 02/09/20. Patient has known gallstone on recent CT and US. I spoke with the radiologist inspector repairer sandstone and she recommended repeated CT today to evaluate for gallstone pancreatitis. Patient was treated with fluids, IV Zofran, IV Reglan, and IV Dilaudid in the ER. CT shows acute pancreatitis and gallstones. I consulted Dr. Abreu of GI and he recommends obtaining and MRCP and then making the decision to admit the patient here at [facility] (if there are no obstructing stone) or transfer the patient to an outside hospital for an ERCP (if there is an obstructing stone). MRCP ordered and patient signed out to oncoming ER provider at shift change. (UNRULY OLIVERA) 02/13/20 10:55 Patient's MRI returned showing no evidence of common bile duct stone the patient does have some thickened wall of her gallbladder. However she does not have a fever. She does not have an elevated white blood cell count. And she does not appear toxic at this time with the significantly elevated lipase would seem most prudent to admit her for medical therapy with surgical consultation if things do not improve. (MARIZA DO) - Vital Signs Vital signs: Temp Pulse Resp BP Pulse Ox 98.3 F 87 18 134/90 H 98 02/13/20 01:23 02/13/20 00:46 02/13/20 09:01 02/13/20 09:01 02/13/20 09:01 - Laboratory Laboratory results interpreted by me: 02/13/20 02/13/20 02/13/20 01:46 01:46 02:05 MCV 75 L MCH 24.9 L RDW 14.5 H Plt Count 463 H Direct Bilirubin 0.6 H AST 529 H ALT 355 H Alkaline Phosphatase 385 H Lipase 70476.1 H Urine Blood LARGE H Urine Urobilinogen 4.0 H Discharge <UNRULY OLIVERA - Last Filed: 02/13/20 05:53> - Discharge Admitting Provider: Clarisse (Hospitalist) - don day to admit Unit Admitted: Medical Floor <MARIZA DO - Last Filed: 02/13/20 10:57> - Discharge Clinical Impression: Pancreatitis Qualifiers: Chronicity: acute Pancreatitis type: unspecified pancreatitis type Acute pancreatitis complication: no infection or necrosis Qualified Code(s): K85.90 - Acute pancreatitis without necrosis or infection, unspecified Condition: Fair Disposition: ADMITTED INPATIENT Referrals: DERREK SMITH MD [Primary Care Provider] - Follow up as needed
[2020-02-13] MEDS ORDERED: METOCLOPRAMIDE HCL INJ/PF 10 MG/2 ML SDV IV ONE (04:37)
[2020-02-13] MEDS ORDERED: NORMAL SALINE 1000 ML 1,000 ML IV ONE (04:51)
--- NOTE | 2020-02-13 04:55 | RADIOLOGY REPORT (SQ) ---
CT ABDOMEN AND PELVIS WITH INTRAVENOUS CONTRAST: 02/13/2020 3:50 AM CDT HISTORY: 25-year old with concern for gallstone pancreatitis. COMPARISON: CT of abdomen and pelvis from 02/09/2020 TECHNIQUE: Axial contiguous images were obtained from the lung bases to the proximal femurs with intravenous intravenous contrast administered. Sagittal and coronal reconstructions were also obtained and reviewed. This exam was performed according to our departmental dose-optimization program, which includes automated exposure control, adjustment of the mA and/or KV according to the patient's size and/or use of iterative reconstruction technique. FINDINGS: No focal consolidative airspace opacities are seen. No discrete pleural effusion is seen. The visualized hepatic parenchyma is unremarkable. The hypodense lesion seen at the inferior right hepatic lobe is not as well delineated. Cholelithiasis is seen. There is mild intra and extrahepatic ductal dilatation present. The common duct measures up to 6 to 7 mm in transverse dimension. The spleen and adrenals are normal in size and contour. The pancreas is prominent with adjacent inflammatory stranding consistent pancreatic head is. There are no findings to suggest pancreatic necrosis. No focal fluid collection is seen. The kidneys demonstrate no evidence of hydronephrosis. There is a punctate nonobstructive calculus at the interpolar region of the left kidney. An anterior umbilical hernia containing omental fat is seen. Bladder is minimally distended, but grossly appears unremarkable. The uterus is present. The stomach is not well distended. The small bowel loops appear unremarkable. No pericolonic inflammatory stranding is seen. The appendix appears unremarkable. There is no evidence of pneumoperitoneum or free fluid. The aorta and IVC appear normal in size. No significantly enlarged lymph nodes are seen in the abdomen or pelvis. Review of the bone show no evidence of any suspicious lytic or blastic lesions. There is a bony protuberance extending from the posterior aspect of the left iliac bone, which is likely congenital. IMPRESSION: There is diffuse stranding around the pancreas consistent with acute pancreatitis. No focal fluid collection is seen. Cholelithiasis is incidentally seen with mild intra and extrahepatic ductal prominence. The distal calculus is not visualized. The previously seen hepatic lesion is not as apparent on current imaging. Interval follow-up is recommended. -
[2020-02-13] MEDS ORDERED: HYDROMORPHONE HCL INJ/PF 2 MG/ML AMPULE IV PRN (05:45)
[2020-02-13] MEDS ORDERED: ONDANSETRON HCL INJ/PF 4 MG/2 ML SDV IV ONE (08:14)
--- NOTE | 2020-02-13 10:39 | RADIOLOGY REPORT (SQ) ---
EXAM DESCRIPTION: MRI ABDOMEN WITHOUT IMAGES COMPLETED DATE/TIME: 02/13/2020 10:07 am REASON FOR STUDY: MRCP needed to rule out gallstone pancreatitis COMPARISON: CT of the abdomen pelvis with contrast from 02/13/2020 and ultrasound of the abdomen from 02/09/2020. TECHNIQUE: Noncontrast MRCP. The source and MIP images were reviewed. LIMITATIONS: None. FINDINGS: GALLBLADDER: The gallbladder is distended and filled with calculi. The gallbladder wall i s thickened and it measures up to 7 mm. INTRAHEPATIC DUCTS: The common hepatic duct distal to the confluence of the right and left hepatic du ct measures 9 mm in diameter. There is no dilatation of the intrahepatic ducts. EXTRAHEPATIC DUCTS: The common bile duct measures up to 6 mm in diameter and it tapers to a normal ca liber as it approaches the ampulla. There is no choledocholithiasis. PANCREAS: Homogeneous signal of the pancreatic parenchyma with mild increased T2 signal in the peripa ncreatic space. The pancreatic duct is normal in caliber. LIVER, SPLEEN, KIDNEYS, ADRENALS: No evidence of hepatic steatosis. The spleen is normal in size. T here is no adrenal mass or hydronephrosis VESSELS: No aneurysm. LUNG BASES: Grossly clear. OTHER: No other finding. IMPRESSION: 1. Distended and thick-galled gallbladder filled with calculi - clinical correlation to exclude an acute cholecystitis is recommended. 2. No choledocholithiasis. 3. Homogeneous signal of the pancreatic parenchyma with mild increased T2 signal in the peripancreati c space. There is no dilatation of the pancreatic duct. TECHNICAL DOCUMENTATION: JOB ID: [id number] [employer]- All Rights Reserved Reading location - IP/workstation name: [email or web address]
[2020-02-13] MEDS ORDERED: MAG HYDROX/AL HYDROX/SIMETH SUSP 30 ML UDCUP PO PRN (12:27)
[2020-02-13] MEDS ORDERED: ACETAMINOPHEN 325 MG TABLET PO PRN (12:27)
[2020-02-13] MEDS ORDERED: ONDANSETRON 4 MG TAB.RAPDIS PO PRN (12:27)
[2020-02-13] MEDS ORDERED: TEMAZEPAM 7.5 MG CAPSULE PO PRN (12:27)
[2020-02-13] MEDS: OXYCODONE-ACETAMINOPHEN 5-325 MG TABLET PO PRN ×2 (13:34→16:26)
[2020-02-13 13:50] LABS: INTERNATIONAL RATION (INR) 0.89
[2020-02-13 14:04] LABS: C-REACTIVE PROTEIN 21.8 mg/L (<10.0)
[2020-02-13] MEDS ORDERED: OXYCODONE-ACETAMINOPHEN 5-325 MG TABLET ONE (16:06)
--- NOTE | 2020-02-13 17:12 | PDOC H&P ---
History of Present Illness Admission Date/PCP: 02/13/20 11:16 DERREK SMITH MD History of Present Illness: ELISE LAURA is a 25 year old female who comes into the hospital with 2-day history of abdominal pain which worsened yesterday afternoon around 1700 hrs.. She states she also started vomiting yesterday and that she has vomited at least 10 times since yesterday.. Patient also complains of fever and chills. Patient actually has been in the emergency room on several occasions within the last week for urinary retention well as abdominal pain.. Patient tells me that she has 4 children ages 843 and 2 weeks. Patient tells me she had a on 02/01/2020 Patient's other medical problem includes spina bifida with nerve involvement from what sounds to be approximately L4 down on the left side with paresthesias Today patient's lipase is 71,464 this was at approximately 014 6 hours, repeat study done this afternoon at 1330 [place] [address] Patient is to be admitted to the hospital for IV fluids, either n.p.o. or clear liquids and pain management for pancreatitis.. Abdominal MRI shows no common bile duct stone, no cholelithiasis, positive pancreatic parenchyma with no sign of abscess Past Medical History Neurological Medical History: Reports: Other - Spina bifida Psychiatric Medical History: Reports: Bipolar Disorder, Depression Past Surgical History Past Surgical History: Reports: Section Social History Smoking Status: Unknown if Ever Smoked Hx Prescription Drug Abuse: No - Advance Directive Resuscitation Status: Full Code Family History Family History: Arthritis, CAD, CVA, DM, Hyperlipidemia, Hypertension, Malignancy, Thyroid Disfunction Parental Family History Reviewed: No Children Family History Reviewed: No Sibling(s) Family History Reviewed.: No Medication/Allergy Home Medications: Ibuprofen [Motrin 800 mg Tablet] 800 mg PO Q6HP PRN 02/13/20 Allergies/Adverse Reactions: alcohol Adverse Reaction (Unknown, Verified 02/13/20 01:23) Review of Systems Constitutional: PRESENT: chills, fever(s) Cardiovascular: ABSENT: chest pain, dyspnea on exertion, edema, orthropnea, palpitations Respiratory: ABSENT: cough, hemoptysis Gastrointestinal: PRESENT: abdominal pain, vomiting Neurological: PRESENT: other - Numbness on the left side of the lower extremities and the perineum. ABSENT: abnormal gait, abnormal speech, confusion, dizziness, focal weakness, syncope Psychiatric: ABSENT: anxiety, depression, homidical ideation, suicidal ideation Physical Exam Vital Signs: Temp Pulse Resp BP Pulse Ox 98.2 F 62 15 110/66 100 02/13/20 15:40 02/13/20 15:40 02/13/20 15:40 02/13/20 15:40 02/13/20 15:40 Intake & Output 02/12/20 02/13/20 02/14/20 06:59 06:59 06:59 Intake Total 1000 Balance 1000 Weight 91.2 kg General appearance: PRESENT: no acute distress, well-developed, well-nourished Respiratory exam: PRESENT: clear to auscultation xander. ABSENT: rales, rhonchi, wheezes Cardiovascular exam: PRESENT: RRR. ABSENT: diastolic murmur, rubs, systolic murmur GI/Abdominal exam: PRESENT: diminished bowel sounds, soft, tenderness - Epigastric Neurological exam: PRESENT: alert, awake, oriented to person, oriented to place, oriented to time, oriented to situation, CN II-XII grossly intact. ABSENT: motor sensory deficit Psychiatric exam: PRESENT: appropriate affect, normal mood. ABSENT: homicidal i deation, suicidal ideation Results Laboratory Results: 02/13/20 01:46 02/13/20 01:46 02/13/20 02/13/20 02/13/20 01:46 01:46 02:05 WBC 9.1 RBC 5.01 Hgb 12.5 Hct 37.5 MCV 75 L MCH 24.9 L MCHC 33.2 RDW 14.5 H Plt Count 463 H Seg Neutrophils % 61.3 Sodium 139.6 Potassium 4.2 Chloride 107 Carbon Dioxide 23 Anion Gap 10 BUN 13 Creatinine 0.85 Est GFR ( Amer) > 60 Glucose 104 Lactic Acid Calcium 9.6 Total Bilirubin 1.1 AST 529 H Alkaline Phosphatase 385 H C-Reactive Protein Total Protein 7.0 Albumin 3.8 Lipase 75489.1 H Urine Color YELLOW Urine Appearance SLIGHTLY-CLOUDY Urine pH 6.0 Ur Specific [place] 1.016 Urine Protein NEGATIVE Urine Glucose (UA) NEGATIVE Urine Ketones NEGATIVE Urine Blood LARGE H Urine Nitrite NEGATIVE Ur Leukocyte Esterase NEGATIVE Urine WBC (Auto) 3 Urine RBC (Auto) 5 02/13/20 02/13/20 13:30 13:30 WBC RBC Hgb Hct MCV MCH MCHC RDW Plt Count Seg Neutrophils % Sodium Potassium Chloride Carbon Dioxide Anion Gap BUN Creatinine Est GFR ( Amer) Glucose Lactic Acid 0.7 Calcium Total Bilirubin AST Alkaline Phosphatase C-Reactive Protein 21.8 H Total Protein Albumin Lipase 33326.4 H Urine Color Urine Appearance Urine pH Ur Specific [place] Urine Protein Urine Glucose (UA) Urine Ketones Urine Blood Urine Nitrite Ur Leukocyte Esterase Urine WBC (Auto) Urine RBC (Auto) Impressions: Abdomen/Pelvis CT 02/13/20 04:07 IMPRESSION: There is diffuse stranding around the pancreas consistent with acute pancreatitis. No focal fluid collection is seen. Cholelithiasis is incidentally seen with mild intra and extrahepatic ductal prominence. The distal calculus is not visualized. The previously seen hepatic lesion is not as apparent on current imaging. Interval follow-up is recommended. - Abdomen MRI 02/13/20 05:41 IMPRESSION: 1. Distended and thick-galled gallbladder filled with calculi - clinical correlation to exclude an acute cholecystitis is recommended. 2. No choledocholithiasis. 3. Homogeneous signal of the pancreatic parenchyma with mild increased T2 signal in the peripancreatic space. There is no dilatation of the pancreatic duct. Assessment and Plan - Diagnosis (1) Spina bifida Is this a current diagnosis for this admission?: Yes (2) Cholelithiasis Is this a current diagnosis for this admission?: Yes (3) Is this a current diagnosis for this admission?: Yes (4) Pancreatitis Qualifiers: Chronicity: acute Pancreatitis type: unspecified pancreatitis type Acute pancreatitis complication: no infection or necrosis Qualified Code(s): K85.90 - Acute pancreatitis without necrosis or infection, unspecified Is this a current diagnosis for this admission?: Yes (5) Elevated liver enzymes Is this a current diagnosis for this admission?: Yes - Plan Summary Summary: She will be admitted to the hospital for IV fluids, clear liquids, pain medication. There has been some discussion concerning narcotics and the patient breast-feeding. We will try to not give narcotics for more than 24 hours. If patient continues to have vomiting will change to an n.p.o. diet. Follow with serial labs I discussed this with the patient and she had her questions answered - Time Time Spent with patient: 35 or more minutes
[2020-02-13] MEDS: ONDANSETRON HCL INJ/PF 4 MG/2 ML SDV IV PRN (17:23)
[2020-02-13] MEDS: FAMOTIDINE 20 MG TABLET PO SCH (21:15)
[2020-02-13] MEDS: HYDROMORPHONE HCL INJ/PF 2 MG/ML AMPULE IV PRN (21:17)
[2020-02-14] MEDS: NORMAL SALINE 1000 ML 1,000 ML IV PRN ×2 (01:16→10:00)
[2020-02-14] MEDS: ONDANSETRON HCL INJ/PF 4 MG/2 ML SDV IV PRN (02:10)
[2020-02-14] MEDS: OXYCODONE-ACETAMINOPHEN 5-325 MG TABLET PO PRN ×3 (02:14→20:55)
[2020-02-14] MEDS: HYDROMORPHONE HCL INJ/PF 2 MG/ML AMPULE IV PRN (06:03)
[2020-02-14 07:56] LABS: ABSOLUTE EOSINOPHILS # (AUTO) 0.1 10^3/uL (0.0-0.6); ABSOLUTE LYMPHOCYTES (AUTO) 1.8 10^3/uL (0.5-4.7); ABSOLUTE MONOCYTES (AUTO) 0.5 10^3/uL (0.1-1.4); ABSOLUTE NEUT (AUTO) 4.5 10^3/uL (1.7-8.2); BASOPHILS % (AUTO) 0.5 % (0-2); EOSINOPHILS % (AUTO) 1.7 % (0-6); HEMATOCRIT 32.6 % (36.0-47.0); HEMOGLOBIN 10.7 g/dL (12.0-15.5); LYMPHOCYTES % (AUTO) 25.8 % (13-45); MEAN CORPUSCULAR HEMOGLOBIN 24.3 pg (27.0-33.4); MEAN CORPUSCULAR HGB CONC 32.8 g/dL (32.0-36.0); MEAN CORPUSCULAR VOLUME 74 fl (80-97); MONOCYTES % (AUTO) 7.7 % (3-13); PLATELET COUNT 373 10^3/uL (150-450); RED CELL DISTRIBUTION WIDTH 14.9 % (11.5-14.0); SEGMENTED NEUTROPHILS % (AUTO) 64.3 % (42-78); TOTAL CELLS COUNTED % (AUTO) 100 %; WHITE BLOOD COUNT 6.9 10^3/uL (4.0-10.5)
[2020-02-14 08:16] LABS: ALBUMIN 3.2 g/dL (3.5-5.0); ALKALINE PHOSPHATASE 373 U/L (38-126); AMYLASE 702 U/L (30-110); ANION GAP 7 (5-19); ASPARTATE AMINO TRANSFERASE 356 U/L (14-36); BILIRUBIN,DIRECT 1.7 mg/dL (0.0-0.4); BILIRUBIN,TOTAL 2.4 mg/dL (0.2-1.3); BLOOD UREA NITROGEN 8 mg/dL (7-20); CALCIUM 8.4 mg/dL (8.4-10.2); CARBON DIOXIDE 26 mmol/L (22-30); CHLORIDE 102 mmol/L (98-107); GLUCOSE 83 mg/dL (75-110); POTASSIUM 3.8 mmol/L (3.6-5.0); TOTAL PROTEIN 5.9 g/dL (6.3-8.2)
[2020-02-14] MEDS: PROMETHAZINE HCL INJ 25 MG/1 ML VIAL IV PRN (08:24)
[2020-02-14] MEDS: DOCUSATE SODIUM 100 MG CAPSULE PO SCH (09:57)
[2020-02-14] MEDS: FAMOTIDINE 20 MG TABLET PO SCH ×2 (09:57→21:05)
[2020-02-14] MEDS: ENOXAPARIN SODIUM INJ 40 MG/0.4 ML DISP.SYRIN SUBCUT SCH (09:58)
--- NOTE | 2020-02-14 11:20 | PDOC PROGRESS REPORT ---
Subjective Progress Note for:: 02/14/20 Reason For Visit: ABDOMINAL PAIN, PANCREATITIS,ELEVATED LIPASE, 02/14/2020 Patient admitted for abdominal pain, pancreatitis spina bifida, cholelithiasis, elevated liver enzymes, recent Physical Exam Vital Signs: Temp Pulse Resp BP Pulse Ox 97.9 F 57 L 20 113/76 100 02/14/20 08:00 02/14/20 08:00 02/14/20 08:00 02/14/20 08:00 02/14/20 08:00 Intake & Output 02/13/20 02/14/20 02/15/20 06:59 06:59 06:59 Intake Total 2209 831 0137 Balance 6025 434 8680 Weight 91.2 kg 85.6 kg General appearance: PRESENT: no acute distress Respiratory exam: PRESENT: clear to auscultation xander. ABSENT: rales, rhonchi, wheezes Cardiovascular exam: PRESENT: RRR. ABSENT: diastolic murmur, rubs, systolic [place] GI/Abdominal exam: PRESENT: soft, tenderness - Epigastric region Neurological exam: PRESENT: alert, awake, oriented to person, oriented to place, oriented to time, oriented to situation, CN II-XII grossly intact. ABSENT: motor sensory deficit Psychiatric exam: PRESENT: appropriate affect, flat affect, normal mood. ABS ENT: homicidal ideation, suicidal ideation Results Laboratory Results: 02/14/20 06:54 02/14/20 06:54 02/13/20 02/13/20 02/14/20 13:30 13:30 06:54 WBC 6.9 RBC 4.40 Hgb 10.7 L Hct 32.6 L MCV 74 L MCH 24.3 L MCHC 32.8 RDW 14.9 H Plt Count 373 Seg Neutrophils % 64.3 Sodium Potassium Chloride Carbon Dioxide Anion Gap BUN Creatinine Est GFR ( Amer) Glucose Lactic Acid 0.7 Calcium Total Bilirubin AST Alkaline Phosphatase C-Reactive Protein 21.8 H Total Protein Albumin Amylase Lipase 50111.4 H 02/14/20 06:54 WBC RBC Hgb Hct MCV MCH MCHC RDW Plt Count Seg Neutrophils % Sodium 135.3 L Potassium 3.8 Chloride 102 Carbon Dioxide 26 Anion Gap 7 BUN 8 Creatinine 0.75 Est GFR ( Amer) > 60 Glucose 83 Lactic Acid Calcium 8.4 Total Bilirubin 2.4 H AST 356 H Alkaline Phosphatase 373 H C-Reactive Protein Total Protein 5.9 L Albumin 3.2 L Amylase 702 H Lipase 3047.7 H Impressions: Abdomen/Pelvis CT 02/13/20 04:07 IMPRESSION: There is diffuse stranding around the pancreas consistent with acute pancreatitis. No focal fluid collection is seen. Cholelithiasis is incidentally seen with mild intra and extrahepatic ductal prominence. The distal calculus is not visualized. The previously seen hepatic lesion is not as apparent on current imaging. Interval follow-up is recommended. - Abdomen MRI 02/13/20 05:41 IMPRESSION: 1. Distended and thick-galled gallbladder filled with calculi - clinical correlation to exclude an acute cholecystitis is recommended. 2. No choledocholithiasis. 3. Homogeneous signal of the pancreatic parenchyma with mild increased T2 signal in the peripancreatic space. There is no dilatation of the pancreatic duct. Assessment and Plan - Diagnosis (1) Spina bifida Is this a current diagnosis for this admission?: Yes (2) Cholelithiasis Is this a current diagnosis for this admission?: Yes (3) Is this a current diagnosis for this admission?: Yes (4) Pancreatitis Qualifiers: Chronicity: acute Pancreatitis type: unspecified pancreatitis type Acute pancreatitis complication: no infection or necrosis Qualified Code(s): K85.90 - Acute pancreatitis without necrosis or infection, unspecified Is this a current diagnosis for this admission?: Yes (5) Elevated liver enzymes Is this a current diagnosis for this admission?: Yes - Plan Summary Summary: She will be admitted to the hospital for IV fluids, clear liquids, pain medication. There has been some discussion concerning narcotics and the patient breast-feeding. We will try to not give narcotics for more than 24 hours. If patient continues to have vomiting will change to an n.p.o. diet. Follow with serial labs I discussed this with the patient and she had her questions answered 02/14/2020 Vital signs this morning temperature 98.3 pulse 53-66, blood pressure 107/58, White count on admission 9.1 today it is 6.9 Chemistry this morning shows total bilirubin up to 2.4 direct bilirubin up 1.7, LFTs are slowly improving CRP is lightly high at 21.8 amylase elevated 702 Lipase today is down to 3047. Beginning to wonder if the original lipase of 71,464 was a lab error since it came down so quickly so dramatically Patient still complains of persistent nausea with drinking or any kind of food or liquids also complains of continued abdominal pain Told patient I am going to stop her Dilaudid this evening and she will only be able to have Percocet as needed for pain also I am going to DC her sleeping pill. I have read the note from the nurse. M also going to consult general surgery to see the patient concerning her cholelithiasis and CT scan - Time Time Spent with patient: 35 or more minutes
--- NOTE | 2020-02-14 12:55 | PDOC CONSULTATION ---
Consultation Consult Date: 02/14/20 Attending physician:: RIKKI YBARRA JR Provider Consulted: RIZWAN LYNN Consult reason:: gallstone pancreatitis History of Present Illness Admission Date/PCP: 02/13/20 11:16 DERREK SMITH MD History of Present Illness: ELISE LAURA is a 25 year old female who comes into the hospital with 2-day history of abdominal pain which worsened yesterday afternoon around 1700 hrs.. She states she also started vomiting yesterday and that she has vomited at least 10 times since yesterday.. Patient also complains of fever and chills. Patient actually has been in the emergency room on several occasions within the last week for urinary retention well as abdominal pain.. Patient tells me that she has 4 children ages 843 and 2 weeks. Patient tells me she had a on 02/01/2020 Patient's other medical problem includes spina bifida with nerve involvement from what sounds to be approximately L4 down on the left side with paresthesias Today patient's lipase is 71,464 this was at approximately 014 6 hours, repeat study done this afternoon [place] 1330 [place] [address] Patient is to be admitted to the hospital for IV fluids, either n.p.o. or clear liquids and pain management for pancreatitis.. Abdominal MRI shows no common bile duct stone, no cholelithiasis, positive pancreatic parenchyma with no sign of abscess Past Medical History Neurological Medical History: Reports: Other - Spina bifida Psychiatric Medical History: Reports: Bipolar Disorder, Depression Past Surgical History Past Surgical History: Reports: Section Social History Smoking Status: Unknown if Ever Smoked Hx Prescription Drug Abuse: No - Advance Directive Resuscitation Status: Full Code Family History Family History: Arthritis, CAD, CVA, DM, Hyperlipidemia, Hypertension, Malignancy, Thyroid Disfunction Parental Family History Reviewed: No Children Family History Reviewed: NA Sibling(s) Family History Reviewed.: NA Medication/Allergy Home Medications: Ibuprofen [Motrin 800 mg Tablet] 800 mg PO Q6HP PRN 02/13/20 Allergies/Adverse Reactions: alcohol Adverse Reaction (Unknown, Verified 02/13/20 01:23) Review of Systems Constitutional: PRESENT: fatigue Eyes: ABSENT: as per HPI, visual disturbances, other Ears: ABSENT: as per HPI, hearing changes, other Nose, Mouth, and Throat: ABSENT: as per HPI, headache(s), mouth pain, sore throat, vertigo, other Breasts: PRESENT: other - breast feeding Cardiovascular: ABSENT: as per HPI, chest pain, dyspnea on exertion, edema, orthropnea, palpitations, other Respiratory: ABSENT: as per HPI, cough, dyspnea, hemoptysis, sputum, other Gastrointestinal: ABSENT: as per HPI, abdominal pain, bloating, coffee ground emesis, constipation, diarrhea, dysphagia, heartburn, hematemesis, hematochezia, melena, nausea, vomiting, other Musculoskeletal: ABSENT: as per HPI, back pain, deformity, joint swelling, muscle weakness, other Integumentary: ABSENT: as per HPI, diaphoresis, erythema, lesions, pruritus, rash, wounds, other Neurological: ABSENT: as per HPI, abnormal gait, abnormal movements, abnormal speech, confusion, convulsions, dizziness, focal weakness, frequent falls, lack of coordination, memory loss, numbness, paresthesias, restless legs, syncope, tingling, tremor(s), vertigo, weakness, other Psychiatric: ABSENT: as per HPI, anxiety, depression, hallucinations, homidical ideation, suicidal ideation, other Endocrine: ABSENT: as per HPI, cold intolerance, flushing, heat intolerance, menstrual abnormalities, polydipsia, polyphagia, polyuria, other Hematologic/Lymphatic: ABSENT: as per HPI, easy bleeding, easy bruising, lymphadenopathy, other Allergic/Immunologic: ABSENT: as per HPI, seasonal rhinorrhea, other Physical Exam Vital Signs: Temp Pulse Resp BP Pulse Ox 97.9 F 57 L 20 113/76 100 02/14/20 08:00 02/14/20 08:00 02/14/20 08:00 02/14/20 08:00 02/14/20 08:00 Intake & Output 02/13/20 02/14/20 02/15/20 06:59 06:59 06:59 Intake Total 4950 762 6009 Balance 7626 078 5002 Weight 91.2 kg 85.6 kg General appearance: PRESENT: no acute distress Head exam: PRESENT: normocephalic Eye exam: PRESENT: EOMI Ear exam: PRESENT: normal external ear exam Mouth exam: PRESENT: moist. ABSENT: dry mucosa, laceration, neck supple, tongue midline, other Teeth exam: ABSENT: dental caries, dental tenderness, edentulous, poor dentation , other Throat exam: ABSENT: post pharyngeal erythema, tonsillar erythema, tonsillar exudate, tonsillogmegaly, other Neck exam: PRESENT: full ROM Respiratory exam: PRESENT: clear to auscultation xander Cardiovascular exam: PRESENT: RRR Pulses: PRESENT: normal radial pulses, normal femoral pulses Vascular exam: PRESENT: normal capillary refill Breast: PRESENT: Normal GI/Abdominal exam: PRESENT: soft, tenderness Rectal exam: PRESENT: deferred Gentrourinary exam: ABSENT: ecchymosis, erythema, lacerations, lesions, scrotal swelling, testicular tenderness, urethral discharge, indwelling catheter, other Extremities exam: PRESENT: full ROM Musculoskeletal exam: PRESENT: full ROM Neurological exam: PRESENT: alert, awake, oriented to person, oriented to place Psychiatric exam: PRESENT: appropriate affect Focused psych exam: ABSENT: catatonic, delusional, euphoric, flight of ideas, internal stimuli, paranoid, pressured speech, psychomotor agitation, restlessness, other Skin exam: PRESENT: dry Results Laboratory Results: 02/14/20 06:54 02/14/20 06:54 02/13/20 02/13/20 02/14/20 13:30 13:30 06:54 WBC 6.9 RBC 4.40 Hgb 10.7 L Hct 32.6 L MCV 74 L MCH 24.3 L MCHC 32.8 RDW 14.9 H Plt Count 373 Seg Neutrophils % 64.3 Sodium Potassium Chloride Carbon Dioxide Anion Gap BUN Creatinine Est GFR ( Amer) Glucose Lactic Acid 0.7 Calcium Total Bilirubin AST Alkaline Phosphatase C-Reactive Protein 21.8 H Total Protein Albumin Amylase Lipase 68135.4 H 02/14/20 06:54 WBC RBC Hgb Hct MCV MCH MCHC RDW Plt Count Seg Neutrophils % Sodium 135.3 L Potassium 3.8 Chloride 102 Carbon Dioxide 26 Anion Gap 7 BUN 8 Creatinine 0.75 Est GFR ( Amer) > 60 Glucose 83 Lactic Acid Calcium 8.4 Total Bilirubin 2.4 H AST 356 H Alkaline Phosphatase 373 H C-Reactive Protein Total Protein 5.9 L Albumin 3.2 L Amylase 702 H Lipase 3047.7 H Impressions: Abdomen/Pelvis CT 02/13/20 04:07 IMPRESSION: There is diffuse stranding around the pancreas consistent with acute pancreatitis. No focal fluid collection is seen. Cholelithiasis is incidentally seen with mild intra and extrahepatic ductal prominence. The distal calculus is not visualized. The previously seen hepatic lesion is not as apparent on current imaging. Interval follow-up is recommended. - Abdomen MRI 02/13/20 05:41 IMPRESSION: 1. Distended and thick-galled gallbladder filled with calculi - clinical correlation to exclude an acute cholecystitis is recommended. 2. No choledocholithiasis. 3. Homogeneous signal of the pancreatic parenchyma with mild increased T2 signal in the peripancreatic space. There is no dilatation of the pancreatic duct. Assessment & Plan - Plan Summary Plan Summary: Impression gallstone pancreatitis. Plan continue clear liquid diet patient should be n.p.o. after midnight if her lipase continues to decrease and her total bilirubin decreases in the next 12 to 18 hours we will proceed with laparoscopic cholecystectomy. However if her total bilirubin rises and there is a high likelihood that she has common bile duct stones and will require preoperative ERCP in which case you may need to be transferred to [facility] for ERCP. I will repeat her liver function studies in the morning and make a decision based on that for surgery tomorrow.
[2020-02-15] MEDS: HYDROMORPHONE HCL INJ/PF 2 MG/ML AMPULE IV PRN (00:23)
[2020-02-15] MEDS: NORMAL SALINE 1000 ML 1,000 ML IV PRN ×2 (00:24→20:30)
[2020-02-15] MEDS: OXYCODONE-ACETAMINOPHEN 5-325 MG TABLET PO PRN ×3 (03:12→20:28)
[2020-02-15 07:42] LABS: ABSOLUTE EOSINOPHILS # (AUTO) 0.2 10^3/uL (0.0-0.6); ABSOLUTE LYMPHOCYTES (AUTO) 2.6 10^3/uL (0.5-4.7); ABSOLUTE MONOCYTES (AUTO) 0.5 10^3/uL (0.1-1.4); ABSOLUTE NEUT (AUTO) 4.3 10^3/uL (1.7-8.2); BASOPHILS % (AUTO) 0.5 % (0-2); EOSINOPHILS % (AUTO) 2.8 % (0-6); HEMATOCRIT 30.8 % (36.0-47.0); HEMOGLOBIN 10.1 g/dL (12.0-15.5); LYMPHOCYTES % (AUTO) 33.8 % (13-45); MEAN CORPUSCULAR HEMOGLOBIN 24.4 pg (27.0-33.4); MEAN CORPUSCULAR HGB CONC 32.8 g/dL (32.0-36.0); MEAN CORPUSCULAR VOLUME 75 fl (80-97); MONOCYTES % (AUTO) 7.1 % (3-13); PLATELET COUNT 343 10^3/uL (150-450); RED BLOOD COUNT 4.13 10^6/uL (3.72-5.28); RED CELL DISTRIBUTION WIDTH 14.9 % (11.5-14.0); SEGMENTED NEUTROPHILS % (AUTO) 55.8 % (42-78); TOTAL CELLS COUNTED % (AUTO) 100 %; WHITE BLOOD COUNT 7.8 10^3/uL (4.0-10.5)
[2020-02-15 08:03] LABS: ALBUMIN 2.8 g/dL (3.5-5.0); ALKALINE PHOSPHATASE 272 U/L (38-126); ASPARTATE AMINO TRANSFERASE 70 U/L (14-36); BILIRUBIN,DIRECT 0.1 mg/dL (0.0-0.4); BILIRUBIN,TOTAL 0.4 mg/dL (0.2-1.3); TOTAL PROTEIN 5.5 g/dL (6.3-8.2)
[2020-02-15] MEDS ORDERED: KETOROLAC TROMETHAMINE 60 MG/2 ML SDV ONE (08:10)
[2020-02-15] MEDS ORDERED: LIDOCAINE 2% INJ-PF (20 MG/ML) 10 ML AMPUL ONE (08:10)
[2020-02-15] MEDS ORDERED: FENTANYL CITRATE INJ/PF 100 MCG/2 ML AMPUL ONE ×2 (08:10→12:08)
[2020-02-15] MEDS ORDERED: DEXAMETHASONE SOD PHOSPHATE INJ 4 MG/1 ML VIAL ONE (08:11)
[2020-02-15] MEDS ORDERED: ONDANSETRON HCL INJ/PF 4 MG/2 ML SDV ONE (08:11)
[2020-02-15] MEDS ORDERED: HYDROMORPHONE HCL INJ/PF 2 MG/ML AMPULE ONE (08:11)
[2020-02-15] MEDS ORDERED: PROPOFOL INJ 200 MG/20 ML VIAL IV ONE (08:11)
[2020-02-15] MEDS ORDERED: MIDAZOLAM 2 MG/2 ML INJ ONE (08:11)
[2020-02-15] MEDS ORDERED: BUPIVACAINE HCL 0.25% /EPINEPHRINE INJ/PF 30 ML SDV ONE (08:26)
[2020-02-15] MEDS: FAMOTIDINE 20 MG TABLET PO SCH ×2 (09:12→21:12)
[2020-02-15] MEDS: ENOXAPARIN SODIUM INJ 40 MG/0.4 ML DISP.SYRIN SUBCUT SCH (09:12)
[2020-02-15] MEDS: DOCUSATE SODIUM 100 MG CAPSULE PO SCH (09:12)
[2020-02-15] MEDS ORDERED: CEFAZOLIN INJ 1 GM VIAL ONE (10:23)
[2020-02-15] MEDS ORDERED: METRONIDAZOLE 500 MG/NS RTU 500 MG/100 ML RTUPB IV ONE (11:05)
[2020-02-15] MEDS ORDERED: PROMETHAZINE HCL INJ 25 MG/1 ML VIAL IV PRN ×2 (11:14)
[2020-02-15] MEDS ORDERED: OXYCODONE-ACETAMINOPHEN 5-325 MG TABLET PO PRN ×2 (11:14)
[2020-02-15] MEDS ORDERED: MORPHINE SULFATE 10 MG/ML INJ IV PRN ×2 (11:14→11:57)
[2020-02-15] MEDS ORDERED: FENTANYL CITRATE INJ/PF 100 MCG/2 ML AMPUL IV PRN ×3 (11:14)
[2020-02-15] MEDS ORDERED: DIPHENHYDRAMINE HCL 50 MG/ML VIAL IV PRN (11:14)
[2020-02-15] MEDS ORDERED: MEPERIDINE HCL/PF INJ 25 MG/1 ML DISP.SYRIN IV PRN (11:14)
--- NOTE | 2020-02-15 11:54 | Operative Report ---
Nonrecallable Operative Report DATE OF SURGERY: 02/15/20 PREOPERATIVE DIAGNOSIS: gallstone pancreatitis POSTOPERATIVE DIAGNOSIS: gallstone pancreattis OPERATION: Laparoscopic cholecystectomy with intraoperative cholangiogram SURGEON: RIZWAN LYNN ANESTHESIA: GA TISSUE REMOVED OR ALTERED: Gallbladder COMPLICATIONS: None INTRAOPERATIVE FINDINGS: Normal cholangiogram PROCEDURE: After obtaining informed consent, the patient was taken to the operating room. General Anesthesia was induced; the arms were extended, and the abdomen was exposed, and prepped and draped in a sterile fashion. Instrumentation was set up for laparoscopic cholecystectomy. Surgical plan and surgical timeout were conducted. A vertical incision was made above the umbilicus, and a verres needle was inserted uneventfully into the peritoneal cavity. Pneumoperitoneum was established. The verres needle was removed and a 10 mm trocar was inserted and a 10 mm flexible laparoscope was inserted. Visualization of the peritoneal cavity confirmed safe uneventful entry. Under direct visualization 3 additional 5 mm ports were established, one in the subxiphoid position and second in the subcostal position. Visualization of the hepatobiliary anatomy revealed no anatomic variations. A grasper was placed on the fundus of the gallbladder and the gallbladder is elevated over the right surface of the liver; a second grasper was used to grasp the infundibulum of the gallbladder. The neck of the gallbladder and junction with the cystic duct was dissected out. The Cystic artery was in its usual location medial and cephalad to the cystic duct. The cystic artery was surrounded with a right angle clamp, clipped twice proximally and divided with laparoscopic scissors. We now opened the triangle of [place] by dividing the peritoneal reflection on both the medial and lateral sides of the cystic duct infundibular junction. The critical view was obtained. We now milked the cystic duct of any possible stones, clipped the cystic duct proximally and then performed a cystic ductotomy. Cholangiogram catheter was then passed into the cystic duct and intraoperative cholangiogram was completed which showed good flow into the duodenum with no common bile duct stones right and left hepatic ducts were also seen. Then the cystic duct was clipped 2 times once distally and divided with scissors. The gallbladder was now removed from the undersurface of the liver using hook cautery dissection. Graspers were repositioned and the gallbladder was removed uneventfully from the abdominal cavity through the super umbilical port site incision. The specimen was examined, then passed off to pathology for permanent analysis. We returned to the peritoneal cavity check for bleeding, and evidence of bile leak, and there was none. We Confirmed satisfactory placement of clips on cystic duct and cystic artery were secured . At this point we felt the operation was complete. The subcutaneous tissue was then anesthetized with quarter percent Marcaine Sponge and needle counts are correct. All ports removed under direct visualization pneumoperitoneum evacuated, and 5 mm port wounds closed with 3-0 Vicryl suture, benzoin and Steri-Strips. The patient was extubated, and taken to the recovery room in stable condition.
[2020-02-15] MEDS: PROMETHAZINE HCL INJ 25 MG/1 ML VIAL IV PRN (13:16)
--- NOTE | 2020-02-15 13:18 | RADIOLOGY REPORT (SQ) ---
EXAM DESCRIPTION: CHOLANGIOGRAM OPERATIVE IMAGES COMPLETED DATE/TIME: 02/15/2020 12:30 pm REASON FOR STUDY: CHOLANGIOGRAM IN OR COMPARISON: None. FLUOROSCOPY TIME: 0.1 minutes. Cine fluoroscopic images of the right upper quadrant were submitted to PACS. TECHNIQUE: Contrast was injected through the clamped cystic duct remnant and it demonstrated opacifi cation of the 2nd portion of the duodenum, common bile duct, common hepatic duct and proximal intrahe patic bile ducts. There is no filling defect within the common bile duct. There is also no extravas ation. LIMITATIONS: None. FINDINGS: Integrated into the Technique. IMPRESSION: INTRAOPERATIVE CHOLANGIOGRAM. COMMENT: Quality ID [id number]: Final reports for procedures using fluoroscopy that document radiation exp osure indices, or exposure time and number of fluorographic images (if radiation exposure indices are not available) TECHNICAL DOCUMENTATION: JOB ID: [id number] 2010 [employer]- All Rights Reserved Reading location - IP/workstation name: [email or web address]
--- NOTE | 2020-02-15 14:02 | Progress Note ---
Provider Note Provider Note: 02/15/2020 Seen briefly in the recovery room in laparoscopic cystectomy due to gallstone pancreatitis. Prior to surgery this morning, patient's labs revealed total bilirubin and direct bilirubin decreasing as well as liver functions. Also amylase had gone from 702 down to 183 lipase had gone from 3047 down to 893. General surgery saw the patient and recommended the above procedure.
[2020-02-15] MEDS ORDERED: GLYCOPYRROLATE 1 MG/5 ML VIAL ONE (14:11)
[2020-02-15] MEDS ORDERED: NEOSTIGMINE METHYLSULFATE 10 MG/10 ML VIAL ONE (14:11)
[2020-02-16] MEDS: OXYCODONE-ACETAMINOPHEN 5-325 MG TABLET PO PRN ×2 (00:39→09:17)
[2020-02-16] MEDS: NORMAL SALINE 1000 ML 1,000 ML IV PRN (04:57)
[2020-02-16 06:55] LABS: ABSOLUTE EOSINOPHILS # (AUTO) 0.1 10^3/uL (0.0-0.6); ABSOLUTE LYMPHOCYTES (AUTO) 2.5 10^3/uL (0.5-4.7); ABSOLUTE MONOCYTES (AUTO) 0.7 10^3/uL (0.1-1.4); ABSOLUTE NEUT (AUTO) 6.7 10^3/uL (1.7-8.2); BASOPHILS % (AUTO) 0.5 % (0-2); EOSINOPHILS % (AUTO) 1.2 % (0-6); HEMATOCRIT 32.9 % (36.0-47.0); HEMOGLOBIN 10.8 g/dL (12.0-15.5); LYMPHOCYTES % (AUTO) 24.8 % (13-45); MEAN CORPUSCULAR HEMOGLOBIN 24.6 pg (27.0-33.4); MEAN CORPUSCULAR HGB CONC 32.7 g/dL (32.0-36.0); MEAN CORPUSCULAR VOLUME 75 fl (80-97); MONOCYTES % (AUTO) 6.6 % (3-13); PLATELET COUNT 408 10^3/uL (150-450); RED BLOOD COUNT 4.38 10^6/uL (3.72-5.28); SEGMENTED NEUTROPHILS % (AUTO) 66.9 % (42-78); TOTAL CELLS COUNTED % (AUTO) 100 %; WHITE BLOOD COUNT 10.1 10^3/uL (4.0-10.5)
[2020-02-16] MEDS: DOCUSATE SODIUM 100 MG CAPSULE PO SCH (09:17)
[2020-02-16] MEDS: FAMOTIDINE 20 MG TABLET PO SCH (09:17)
--- NOTE | 2020-02-16 09:43 | PDOC DISCHARGE SUMMARY ---
General - Admit/Disc Date/PCP Admission Date/Primary Care Provider: 02/13/20 11:16 DERREK SMITH MD Discharge Date: 02/16/20 - Discharge Diagnosis Final Diagnosis: biliary pancreatitis - Assessment Summary: This is a 25-year-old female admitted with biliary pancreatitis. The patient's symptoms began to improve, and she was taken for laparoscopic cholecystectomy with cholangiogram. Her laparoscopic cholecystectomy went well, without any complication. Her cholangiogram was normal. On postoperative day #1, she was eating, ambulating, and her pain was controlled with oral pain medications. At this time it is felt that she has reached maximal hospital benefit, and is fit for discharge. - Additional Information Resuscitation Status: Full Code Discharge Diet: As Tolerated Discharge Activity: Balance Activity w/Rest, No Lifting Over 10 Pounds, No Lifting/Push/Pulling Referrals: DERREK SMITH MD [Primary Care Provider] - Follow up as needed NAOMY MILLER MD [ACTIVE STAFF] - (follow up in 2 weeks) Prescriptions: Hydrocodone/Acetaminophen [[place] 10-325 mg Tablet] 1 tab PO Q6HP PRN #14 tablet PRN Reason: For Pain Home Medications: Ibuprofen [Motrin 800 mg Tablet] 800 mg PO Q6HP PRN 02/13/20 Hydrocodone/Acetaminophen [[place] 10-325 mg Tablet] 1 tab PO Q6HP PRN #14 tablet 02/16/20 Additional Information: Discharge home. Diet as tolerated. Activity: No lifting greater than 10 pounds x 2 weeks. Follow-up with [facility] in 7 to 10 days. [place] 10/325 mg p.o. every 6 hours as needed for pain. Okay to shower starting Tuesday. No swimming pools, tub baths, or hot tubs x2 weeks. History of Present Illiness History of Present Illness: ELISE LAURA is a 25 year old female Physical Exam Vital Signs: Temp Pulse Resp BP Pulse Ox 97.9 F 66 18 134/69 H 99 02/16/20 08:16 02/16/20 08:16 02/16/20 08:16 02/16/20 08:16 02/16/20 08:16 Intake & Output 02/15/20 02/16/20 02/17/20 06:59 06:59 06:59 Intake Total 2300 2400 Output Total 5 Balance 2300 2395 Weight 86.2 kg Results Laboratory Results: WBC 10.1 10^3/uL (4.0-10.5) 02/16/20 06:45 RBC 4.38 10^6/uL (3.72-5.28) 02/16/20 06:45 Hgb 10.8 g/dL (12.0-15.5) L 02/16/20 06:45 Hct 32.9 % (36.0-47.0) L 02/16/20 06:45 MCV 75 fl (80-97) L 02/16/20 06:45 MCH 24.6 pg (27.0-33.4) L 02/16/20 06:45 MCHC 32.7 g/dL (32.0-36.0) 02/16/20 06:45 RDW 15.0 % (11.5-14.0) H 02/16/20 06:45 Plt Count 408 10^3/uL (150-450) 02/16/20 06:45 Lymph % (Auto) 24.8 % (13-45) 02/16/20 06:45 [place] % (Auto) 6.6 % (3-13) 02/16/20 06:45 Eos % (Auto) 1.2 % (0-6) 02/16/20 06:45 Baso % (Auto) 0.5 % (0-2) 02/16/20 06:45 Absolute Neuts (auto) 6.7 10^3/uL (1.7-8.2) 02/16/20 06:45 Absolute Lymphs (auto) 2.5 10^3/uL (0.5-4.7) 02/16/20 06:45 Absolute Monos (auto) 0.7 10^3/uL (0.1-1.4) 02/16/20 06:45 Absolute Eos (auto) 0.1 10^3/uL (0.0-0.6) 02/16/20 06:45 Absolute Basos (auto) 0.0 10^3/uL (0.0-0.2) 02/16/20 06:45 Seg Neutrophils % 66.9 % (42-78) 02/16/20 06:45 ESR 34 mm/hr (0-20) H 02/13/20 13:30 PT 12.0 SEC (11.4-15.4) 02/13/20 13:30 INR 0.89 02/13/20 13:30 APTT 30.7 SEC (23.5-35.8) 02/14/20 06:54 Sodium 135.3 mmol/L (137-145) L 02/14/20 06:54 Potassium 3.8 mmol/L (3.6-5.0) 02/14/20 06:54 Chloride 102 mmol/L (98-107) 02/14/20 06:54 Carbon Dioxide 26 mmol/L (22-30) 02/14/20 06:54 Anion Gap 7 (5-19) 02/14/20 06:54 BUN 8 mg/dL (7-20) 02/14/20 06:54 Creatinine 0.75 mg/dL (0.52-1.25) 02/14/20 06:54 Est GFR ( Amer) > 60 (>60) 02/14/20 06:54 Est GFR (MDRD) Non-Af > 60 (>60) 02/14/20 06:54 Glucose 83 mg/dL (75-110) 02/14/20 06:54 Lactic Acid 0.7 mmol/L (0.7-2.1) 02/13/20 13:30 Calcium 8.4 mg/dL (8.4-10.2) 02/14/20 06:54 Total Bilirubin 0.4 mg/dL (0.2-1.3) 02/15/20 07:26 Direct Bilirubin 0.1 mg/dL (0.0-0.4) 02/15/20 07:26 Neonat Total Bilirubin Not Reportable 02/15/20 07:26 Neonat Direct Bilirubin Not Reportable 02/15/20 07:26 Neonat Indirect Bili Not Reportable 02/15/20 07:26 AST 70 U/L (14-36) H 02/15/20 07:26 ALT 186 U/L (<35) H 02/15/20 07:26 Alkaline Phosphatase 272 U/L (38-126) H 02/15/20 07:26 C-Reactive Protein 21.8 mg/L (<10.0) H 02/13/20 13:30 Total Protein 5.5 g/dL (6.3-8.2) L 02/15/20 07:26 Albumin 2.8 g/dL (3.5-5.0) L 02/15/20 07:26 Amylase 77 U/L (30-110) 02/16/20 06:45 Lipase 524.2 U/L (23-300) H 02/16/20 06:45 Beta HCG, Quant 3.16 mIU/mL (0.0-6.15) 02/13/20 01:46 Total Beta HCG NEGATIVE (NEGATIVE) 02/13/20 01:46 Urine Color YELLOW 02/13/20 02:05 Urine Appearance SLIGHTLY-CLOUDY 02/13/20 02:05 Urine pH 6.0 (5.0-9.0) 02/13/20 02:05 Ur Specific [place] 1.016 02/13/20 02:05 Urine Protein NEGATIVE mg/dL (NEGATIVE) 02/13/20 02:05 Urine Glucose (UA) NEGATIVE mg/dL (NEGATIVE) 02/13/20 02:05 Urine Ketones NEGATIVE mg/dL (NEGATIVE) 02/13/20 02:05 Urine Blood LARGE (NEGATIVE) H 02/13/20 02:05 Urine Nitrite NEGATIVE (NEGATIVE) 02/13/20 02:05 Urine Bilirubin NEGATIVE (NEGATIVE) 02/13/20 02:05 Urine Urobilinogen 4.0 mg/dL (<2.0) H 02/13/20 02:05 Ur Leukocyte Esterase NEGATIVE (NEGATIVE) 02/13/20 02:05 Urine WBC (Auto) 3 /HPF 02/13/20 02:05 Urine RBC (Auto) 5 /HPF 02/13/20 02:05 Squamous Epi Cells Auto 4 /HPF 02/13/20 02:05 Urine Mucus (Auto) RARE /LPF 02/13/20 02:05 Urine Ascorbic Acid NEGATIVE (NEGATIVE) 02/13/20 02:05 SARS-CoV-2 (PCR) NEGATIVE (NEGATIVE) 02/15/20 08:30 Impressions: Abdomen/Pelvis CT 02/13/20 04:07 IMPRESSION: There is diffuse stranding around the pancreas consistent with acute pancreatitis. No focal fluid collection is seen. Cholelithiasis is incidentally seen with mild intra and extrahepatic ductal prominence. The distal calculus is not visualized. The previously seen hepatic lesion is not as apparent on current imaging. Interval follow-up is recommended. - Abdomen MRI 02/13/20 05:41 IMPRESSION: 1. Distended and thick-galled gallbladder filled with calculi - clinical correlation to exclude an acute cholecystitis is recommended. 2. No choledocholithiasis. 3. Homogeneous signal of the pancreatic parenchyma with mild increased T2 signal in the peripancreatic space. There is no dilatation of the pancreatic duct. Cholangiogram 02/15/20 00:00 IMPRESSION: INTRAOPERATIVE CHOLANGIOGRAM.
[2020-02-16 13:21] VITALS: BP 125/69
== END 2020-02-16 14:20 | disposition home or self-care (01) | DRG 769 ==
LOC: ER 00:31 → EH 11:16 → 4S 12:38 → 2N 15:30
PROVIDERS: ADMIT Hospitalist; ATTEND Physician Assistant
PROC: BF10YZZ Fluoroscopy of Bile Ducts using Other Contrast (ICD-10-PCS; 2020-02-15)
PROC: 0FT44ZZ Resection of Gallbladder, Percutaneous Endoscopic Approach (ICD-10-PCS; principal; 2020-02-15 09:00)
DX: O90.89 Other complications of the puerperium, not elsewhere classified (principal); K85.10 Biliary acute pancreatitis without necrosis or infection; G82.20 Paraplegia, unspecified; R74.8 Abnormal levels of other serum enzymes; O99.345 Other mental disorders complicating the puerperium; F41.8 Other specified anxiety disorders; Q05.9 Spina bifida, unspecified; Z03.818 Encounter for observation for suspected exposure to other biological agents ruled out
CPT/HCPCS: 36415; 74177; 74181; 74300; 790; 80053; 80076; 81001; 82150; 83605; 83690; 84702; 85025; 85610; 85652; 85730; 86140; 87086; 87635; 88304; 99285; C9803; J0690; J1100; J1170; J1650; J1885; J2250; J2270; J2405; J2550; J2704; J2710; J2765; J3010; J3490; J7030; Q9967; S0119